=== PATIENT | male | born 1985 | race Caucasian/White ===

== ENCOUNTER 2017-12-09 10:47 | Emergency (ER) | payer SELFPAY ==
[2017-12-09 11:03] VITALS: BP 131/97
--- NOTE | 2017-12-09 11:59 | RAD ---
INDICATION: Right hand injury. TECHNIQUE: 4 views of the right hand were obtained. FINDINGS: The bones are in normal alignment. No fracture is seen. Joint spaces appear maintained. IMPRESSION: NO EVIDENCE FOR FRACTURE. IF THE PATIENT'S SYMPTOMS PERSIST RECOMMEND FOLLOW-UP IMAGING.
[2017-12-09] MEDS ORDERED: Tetan/Diph/Pertus SYR(Tdap)* 0.5 ML SYR(BOOSTRIX) use SYR IM ONE (12:28)
--- NOTE | 2017-12-09 12:42 | UC ---
Hand/Wrist HPI - HPI Summary HPI Summary: Patient presents to the with complaint of abrasion to the middle and fourth MCP joints after he cut it on a piece of metal at approximately 10 AM this morning. T Updated 11 years ago. He also has a history of fractured right middle MCP joint. Full range of motion of the MCP joints and wrist. Denies any pain. He is concerned over infection. He denies any other pain or injuries at this time. He has not tried anything [id number] for relief. - History Of Current Complaint Chief Complaint: UCLaceration Stated Complaint: HAND INJURY Time Seen by Provider: 12/09/17 10:50 Hx Obtained From: Patient ?: No Mechanism Of Injury: metal Onset/Duration: Sudden Onset Severity Initially: Mild Severity Currently: Mild Pain Intensity: 6 Pain Scale Used: 0-10 Numeric Character Of Pain: Aching Aggravating Factor(s): Movement, Lifting, Flexion, Extension Alleviating Factor(s): Nothing Related History: Dominant Hand Right - Risk Factors Compartment Syndrome Risk Factors: Pain - Allergies/Home Medications Allergies/Adverse Reactions: Allergies Allergy/AdvReac Type Severity Reaction Status Date / Time No Known Allergies Allergy Verified 12/09/17 10:58 Home Medications: Home Medications NK [No Home Medications Reported] 12/09/17 [History Confirmed 12/09/17] PMH/Surg Hx/FS Hx/Imm Hx Previously Healthy: Yes - Surgical History Surgical History: None - Social History Occupation: Employed Full-time Lives: With Family Alcohol Use: None Substance Use Type: None Smoking Status (MU): Never Smoked Tobacco Review of Systems Constitutional: Negative Skin: Other - Laceration and abrasion to the right middle and fourth MCP ENT: Negative Respiratory: Negative Cardiovascular: Negative Motor: Negative Neurovascular: Negative Musculoskeletal: Negative Neurological: Negative Is Patient Immunocompromised?: No All Other Systems Reviewed And Are Negative: Yes Physical Exam Triage Information Reviewed: Yes Appearance: Well-Appearing, Well-Nourished Vital Signs: Initial Vital Signs Temp 99.0 F 12/09/17 10:58 Pulse 85 12/09/17 10:58 Resp 16 12/09/17 10:58 BP 131/97 12/09/17 10:58 Pulse Ox 99 12/09/17 10:58 Vital Signs Reviewed: Yes Eye Exam: Normal Eyes: Positive: Conjunctiva Clear Neck exam: Normal Neck: Positive: Supple, No Lymphadenopathy Respiratory Exam: Normal Respiratory: Positive: Chest non-tender, Lungs clear Cardiovascular Exam: Normal Cardiovascular: Positive: RRR Musculoskeletal Exam: Normal Musculoskeletal: Positive: Strength Intact Psychological Exam: Normal Psychological: Positive: Normal Response To Family Skin Exam: Normal Hand/Wrist Course/Dx - Course Course Of Treatment: During the course of evaluation, the patient is evaluated for middle and fourth MCP joint injury and abrasions. Hand x-ray obtained which shows no acute findings. Full range of motion without pain. No pain over the scaphoid bone on palpation. Lacerations to the middle and fourth MCP which are approximately 0.7 cm in length over the middle dorsum of the MCP and 0.5 cm in length over the fourth finger over the MCP. Superficial. No need for sutures. Area was cleaned well with chlorhexidine. Adhesive glue applied to both abrasion and laceration and Steri-Strips applied. Gauze wrapped. Tdap updated at this time. - Differential Dx/Diagnosis Differential Diagnosis/HQI/PQRI: Abrasion Provider Diagnoses: Abrasion to the R hand Discharge - Sign-Out/Discharge Documenting (check all that apply): Discharge - Discharge Plan Condition: Stable Disposition: HOME Patient Education Materials: Skin Adhesive Care (ED), Steristrips (ED) Referrals: Joe Mcdermott MD [Primary Care Provider] - Additional Instructions: Keep the steri strip applied x 2 days Keep other bandage and dayna wrap on x 24 hours. - Billing Disposition and Condition Condition: STABLE Disposition: HOME
== END 2017-12-09 12:47 | disposition home or self-care (01) ==
LOC: UCEAST 10:47
DX: S60.511A Abrasion of right hand, initial encounter (principal); W26.8XXA Contact with other sharp object(s), not elsewhere classified, initial encounter; Y92.9 Unspecified place or not applicable; Z23 Encounter for immunization
CPT/HCPCS: 90471; 90715; 99211; G0463

== ENCOUNTER 2018-01-13 09:08 | Emergency (ER) | payer SELFPAY ==
[2018-01-13] MEDS ORDERED: Aspirin TAB* 325 MG PO ONE (09:18)
[2018-01-13 09:30] VITALS: BP 161/81
[2018-01-13] MEDS ORDERED: Nitroglycerin TAB 0.4 MG* 0.4 MG TAB SL ONE (09:30)
--- NOTE | 2018-01-13 09:48 | ED ---
HPI Chest Pain - HPI Summary HPI Summary: 32 yo WM h/o HTN c/o right sided CP - stabbing and pressure like x 2 hrs, pain 8 /10 associated with some nausea and diaphoresis, NO cardiac workup in the past , on NO meds and has had left sided CP, in the past and had no follow up with any physician - History of Current Complaint Chief Complaint: UCChestPain Hx Obtained From: Patient Timing: Constant Initial Severity: Severe Current Severity: Severe Pain Intensity: 8 Chest Pain Location: Upper Sternal, Right Anterior Chest Pain Radiates To:: Shoulder Aggravating Factor(s): Nothing Alleviating Factor(s): Nothing Associated Signs and Symptoms: Positive: Chest Pain, Diaphoresis - Allergy/Home Medications Allergies/Adverse Reactions: Allergies Allergy/AdvReac Type Severity Reaction Status Date / Time No Known Allergies Allergy Verified 01/13/18 09:09 PMH/Surg Hx/FS Hx/Imm Hx Previously Healthy: Yes Cardiovascular History: Reports: Hx Hypertension Infectious Disease History: No Infectious Disease History: Denies: Traveled Outside the [place] in Last 30 Days - Social History Alcohol Use: None Substance Use Type: Reports: None Smoking Status (MU): Never Smoked Tobacco Review of Systems Constitutional: Negative ENT: Negative Positive: Chest Pain Respiratory: Negative Gastrointestinal: Negative Genitourinary: Negative Skin: Negative Neurological: Negative Psychological: Normal All Other Systems Reviewed And Are Negative: Yes Physical Exam Triage Information Reviewed: Yes Vital Signs On Initial Exam: Initial Vitals Temp Pulse Resp BP Pulse Ox 36.9 C 73 18 136/82 99 01/13/18 09:09 01/13/18 09:09 01/13/18 09:09 01/13/18 09:09 01/13/18 09:09 Vital Signs Reviewed: Yes Appearance: Positive: Well-Appearing Skin: Positive: Warm Eyes: Positive: Normal ENT: Positive: Normal ENT inspection Respiratory/Lung Sounds: Positive: Clear to Auscultation Cardiovascular: Positive: Normal, Other - SEVERE anterior right upper chest tenderness "underneath" right upper pectoralis major, radiating to shoulder, S1 , S2 Abdomen Description: Positive: Nontender Musculoskeletal: Positive: Normal Neurological: Positive: Normal Psychiatric: Positive: Normal AVPU Assessment: Alert Diagnostics - Vital Signs Vital Signs Temp Pulse Resp BP Pulse Ox 01/13/18 09:30 85 18 161/81 99 04/26/18 09:09 36.9 C 73 18 136/82 99 - Laboratory Lab Statement: Any lab studies that have been ordered have been reviewed, and results considered in the medical decision making process. Chest Pain Course/Dx - Course Course Of Treatment: PT IS C/O RIGHT SHOULDER AND RIGHT UPPER CP THAT HAS BEEN 8 /10 SINCE 7:10 THIS AM EKG FROM 2 YEARS AGO SHOWED LBBB, NOW WITH MORE PRONOUNCED ST ELEVATION >2mm IN LEADS V5 AND V6, likely LAD ACS vs possible aortic dissection (Left arm 136/82, 73, R arm 161/81, 85) ER called and discussed case with Dr Engel and Niesha James PA in ED - Chest Pain Differential Diagnosis/HQI/PQRI: Acute CO, ACS, Angina, Aortic Aneurysm, Other: - aortic dissection, - Diagnoses Provider Diagnoses: Chest pain due to CAD - Provider Notifications Instructed by Provider To: MD Will See In ED - Informed Dr Khanna in ED Discharge - Sign-Out/Discharge Documenting (check all that apply): Discharge/Admit/Transfer - Discharge Plan Condition: Guarded Disposition: AGAINST MEDICAL ADVICE Discharge Disposition Comment: PT WAS OFFERED AMBULANCE FOR A TRANSFER BUT PT REFUSED SEVERAL TIMES Referrals: Joe Mcdermott MD [Primary Care Provider] - Additional Instructions: GO TO ER [facility] , YOU ARE LEAVING AGAINST MEDICAL ADVICE TO BE TRANSFERRED BY AMBULANCE. - Billing Disposition and Condition Condition: GUARDED Disposition: [facility]
== END 2018-01-13 09:38 | disposition left against medical advice (07) ==
LOC: UCEAST 09:08
DX: R07.89 Other chest pain (principal); R11.0 Nausea; R61 Generalized hyperhidrosis; I25.10 Atherosclerotic heart disease of native coronary artery without angina pectoris; I10 Essential (primary) hypertension
CPT/HCPCS: 93005; 99213; A9270-GY; G0463

== ENCOUNTER 2018-01-13 09:52 | Observation (INO) | payer SELFPAY ==
[2018-01-13] MEDS ORDERED: Morphine VIAL* 4 MG/ML VIAL (1 ml vial) IV ONE ×3 (10:02→11:54)
[2018-01-13] MEDS ORDERED: Ondansetron INJ* 2 MG/ML VIAL IV ONE (10:02)
[2018-01-13] MEDS ORDERED: Nitroglycerin TAB 0.4 MG* 0.4 MG TAB SL ONE (10:06)
[2018-01-13] MEDS ORDERED: NS 0.9% 1000 ML* 2,000 ML IV ONE (10:06)
[2018-01-13 10:22] LABS: ABS Basophils 0.1 10^3/ul (0-0.2); ABS Eosinophils 0.3 10^3/ul (0-0.6); ABS Lymphocytes 2.7 10^3/ul (1.0-4.8); ABS Monocytes 0.7 10^3/ul (0-0.8); ABS Neutrophils 5.2 10^3/ul (1.5-7.7); ABS Nucleated RBC 0 10^3/ul; Eosinophil % 3.5 % (0-6); Hematocrit 46 % (42-52); Hemoglobin 15.8 g/dl (14.0-18.0); Lymphocyte % 29.9 % (25-47); Mean Corpuscular HGB Conc 35 g/dl (31-36); Mean Corpuscular Hemoglobin 31 pg (27-31); Mean Corpuscular Volume 89 fL (80-94); Mean Platelet Volume 9.1 um3 (7.4-10.4); Nucleated Red Blood Cells % 0; Platelet Count 285 10^3/ul (150-450); Red Blood Count 5.13 10^6/ul (4.0-5.4); Red Cell Distribution Width 13 % (10.5-15); White Blood Count 9.1 10^3/ul (3.5-10.8)
--- NOTE | 2018-01-13 10:58 | RAD ---
INDICATION: Left bundle branch block. COMPARISON: Correlation is made with a prior chest x-ray study from December 11, 2014. TECHNIQUE: A portable view of the chest was obtained. FINDINGS: Cardiac and mediastinal contours appear to be within normal limits. The lungs are clear. No pleural effusion is seen. IMPRESSION: NO EVIDENCE FOR ACUTE DISEASE.
[2018-01-13 10:59] LABS: EGFR Non-African American 99.7 (>60)
[2018-01-13] MEDS ORDERED: Iohexol 350* (CONTRAST) 500 ML MDV IV ONE (11:20)
--- NOTE | 2018-01-13 12:07 | RAD ---
INDICATION: Right-sided chest pain. COMPARISON: Comparison is made with a prior chest x-ray study from January 13, 2018. TECHNIQUE: A CT angiogram of the chest was performed with intravenous following intravenous injection of 84 ml of Omnipaque 350 nonionic contrast. Contiguous axial sections were obtained from the lung apices through the lung bases. Images were reconstructed in the coronal and sagittal planes. FINDINGS: There is relatively homogeneous opacification of the pulmonary arteries. No intraluminal filling defect or pulmonary embolism is seen. The heart is within normal limits in size. No pericardial effusion is present. The thoracic aorta is normal in caliber and incompletely pacified. There is no gross evidence for dissection. No significant enlarged mediastinal or hilar lymph nodes are seen. There is mild increased density in the anterior mediastinum most consistent with residual thymus tissue. There is minimal dependent atelectasis in the left lower lobe. The lungs are otherwise clear. No pleural effusion or pneumothorax is seen. No acute finding is seen on the images of the upper abdomen. No significant focal osseous abnormality is seen. IMPRESSION: NO EVIDENCE FOR PULMONARY EMBOLISM.
[2018-01-13] MEDS ORDERED: Lidocaine 2% VISCOUS* 15 ML UDC PO ONE (12:41)
[2018-01-13] MEDS ORDERED: Pantoprazole IV* 40 MG IV ONE (12:41)
[2018-01-13] MEDS ORDERED: Al Hydrox/Mg Hydrox/Simet LIQ* 30 ML UDC PO ONE (12:41)
--- NOTE | 2018-01-13 13:41 | RAD ---
Indication: RIGHT chest pain. Comparison: January 13, [address] Technique: RIGHT upper quadrant ultrasound. Report: Appropriate direction flow documented in the portal and hepatic veins. 17.9 cm liver is increased in echogenicity. Focal geographic nonmass-like relative hypoechogenicity anterior to the main portal vein is consistent with focal fatty sparing. Negative for intrahepatic biliary dilatation. 5.4 mm common bile duct. Adequately distended gallbladder with 2.9 mm wall is without pathologic finding. Negative for sonographic Chicas's sign. The pancreatic head and tail are significantly obscured due to bowel gas with the visualized pancreas unremarkable. Negative for ascites. 13.1 x 4.9 x 5.4 cm RIGHT kidney is unremarkable. IMPRESSION: 1. Negative for gallbladder pathology. 2. Hepatosteatosis. Focal fatty sparing anterior to the main portal vein.
[2018-01-13] MEDS ORDERED: Morphine VIAL* 4 MG/ML VIAL (1 ml vial) IV PRN (13:58)
[2018-01-13] MEDS ORDERED: Acetaminophen TAB* 325 MG PO PRN (13:58)
[2018-01-13] MEDS ORDERED: Ketorolac INJ* 30 MG/ML 1 ML VIAL IV PUSH ONE (13:58)
[2018-01-13] MEDS ORDERED: Ondansetron INJ* 2 MG/ML VIAL IV PRN (13:58)
--- NOTE | 2018-01-13 14:30 | ED ---
Rex Clark Jennifer, scribed for Te Khanna MD on 01/13/18 at 1010 . HPI Chest Pain - HPI Summary HPI Summary: The patient is a 32 year old male who comes from with sudden onset chest pain and dizziness since 07:00 this morning. The pain is severe and right- sided. Deep breaths aggravate the pain. The patient complains of tingling down the right arm and pain in the right neck, back, and shoulder. He additionally complains of shortness of breath and diaphoresis. - History of Current Complaint Chief Complaint: EDChestPainROMI Time Seen by Provider: 01/13/18 10:02 Hx Obtained From: Patient Onset/Duration: Started Hours Ago - 3 hours, Still Present Timing: Constant Initial Severity: Severe Current Severity: Severe Pain Intensity: 4 Pain Scale Used: 0-10 Numeric Chest Pain Location: Discrete at: - Right sided Chest Pain Radiates: No Aggravating Factor(s): Deep Breaths Alleviating Factor(s): Nothing Associated Signs and Symptoms: Positive: Dizziness, Other: - tingling down right arm; pain in right neck, back, shoulder; shortness of breath;diaphoresis - Allergy/Home Medications Allergies/Adverse Reactions: Allergies Allergy/AdvReac Type Severity Reaction Status Date / Time No Known Allergies Allergy Verified 01/13/18 09:09 Home Medications: Home Medications Multivitamins/Minerals TAB* [Theragran/minerals TAB*] 1 tab PO DAILY 01/13/18 [ History Confirmed 01/13/18] PMH/Surg Hx/FS Hx/Imm Hx Cardiovascular History: Reports: Hx Hypertension, Other Cardiovascular Problems/ Disorders - LBBB Sensory History: Denies: Hx Legally Blind, Hx Deafness Infectious Disease History: No Infectious Disease History: Denies: Traveled Outside the [place] in Last 30 Days - Family History Known Family History: Positive: Cardiac Disease - Father of MS - Social History Alcohol Use: None Substance Use Type: Reports: None Smoking Status (MU): Never Smoked Tobacco Review of Systems Positive: Skin Diaphoresis Positive: Chest Pain Positive: Shortness Of Breath Positive: Myalgia - right neck, back, shoulder Neurological: Other - Dizziness, tingling down right arm All Other Systems Reviewed And Are Negative: Yes Physical Exam - Summary Physical Exam Summary: General: well-appearing, moderate pain distress Skin: warm, color reflects adequate perfusion, dry Head: normal Eyes: EOMI, BERTHA ENT: normal Neck: supple, nontender Respiratory: CTA, breath sounds present Cardiovascular: RRR Abdomen: soft, nontender Bowel: present Musculoskeletal: normal, strength/ROM intact Neurological: normal, sensory/motor intact, A&O x3 Psychological: affect/mood appropriate Triage Information Reviewed: Yes Vital Signs On Initial Exam: Initial Vitals Temp Pulse Resp BP Pulse Ox 98.2 F 66 16 164/117 98 01/13/18 10:00 01/13/18 10:00 01/13/18 10:00 01/13/18 10:00 01/13/18 10:00 Vital Signs Reviewed: Yes Diagnostics - Vital Signs Vital Signs Temp Pulse Resp BP Pulse Ox 01/13/18 10:05 100 01/13/18 10:00 98.2 F 66 16 164/117 98 - Laboratory Lab Results: Lab Results 01/13/18 01/13/18 01/13/18 Range/Units 10:03 10:03 10:03 WBC 9.1 (3.5-10.8) 10^3/ul RBC 5.13 (4.0-5.4) 10^6/ul Hgb 15.8 (14.0-18.0) g/dl Hct 46 (42-52) % MCV 89 (80-94) fL MCH 31 (27-31) pg MCHC 35 (31-36) g/dl RDW 13 (10.5-15) % Plt Count 285 (150-450) 10^3/ul MPV 9.1 (7.4-10.4) um3 Neut % (Auto) 57.7 (38-83) % Lymph % (Auto) 29.9 (25-47) % [place] % (Auto) 8.0 H (0-7) % Eos % (Auto) 3.5 (0-6) % Baso % (Auto) 0.9 (0-2) % Absolute Neuts (auto) 5.2 (1.5-7.7) 10^3/ul Absolute Lymphs (auto) 2.7 (1.0-4.8) 10^3/ul Absolute Monos (auto) 0.7 (0-0.8) 10^3/ul Absolute Eos (auto) 0.3 (0-0.6) 10^3/ul Absolute Basos (auto) 0.1 (0-0.2) 10^3/ul Absolute Nucleated RBC 0 10^3/ul Nucleated RBC % 0 ESR Pending APTT 31.0 (26.0-36.3) seconds D-Dimer, Quantitative < 200 (Less Than 230) ng/mL Sodium 139 (139-145) mmol/L Potassium 4.0 (3.5-5.0) mmol/L Chloride 107 (101-111) mmol/L Carbon Dioxide 20 L (22-32) mmol/L Anion Gap 12 H (2-11) mmol/L BUN 14 (6-24) mg/dL Creatinine 0.88 (0.67-1.17) mg/dL Est GFR ( Amer) 128.3 (>60) Est GFR (Non-Af Amer) 99.7 (>60) BUN/Creatinine Ratio 15.9 (8-20) Glucose 101 H (70-100) mg/dL Lactic Acid (0.5-2.0) mmol/L Calcium 9.8 (8.6-10.3) mg/dL Total Bilirubin 0.50 (0.2-1.0) mg/dL AST 18 (13-39) U/L ALT 19 (7-52) U/L Alkaline Phosphatase 48 (34-104) U/L Troponin I 0.01 (<0.04) ng/mL C-Reactive Protein < 1.00 (< 5.00) mg/L Total Protein 7.2 (6.4-8.9) g/dL Albumin 4.3 (3.2-5.2) g/dL Globulin 2.9 (2-4) g/dL Albumin/Globulin Ratio 1.5 (1-3) Lipase 14 (11.0-82.0) U/L TSH 1.89 (0.34-5.60) mcIU/mL 01/13/18 01/13/18 Range/Units 10:03 13:06 WBC (3.5-10.8) 10^3/ul RBC (4.0-5.4) 10^6/ul Hgb (14.0-18.0) g/dl Hct (42-52) % MCV (80-94) fL MCH (27-31) pg MCHC (31-36) g/dl RDW (10.5-15) % Plt Count (150-450) 10^3/ul MPV (7.4-10.4) um3 Neut % (Auto) (38-83) % Lymph % (Auto) (25-47) % [place] % (Auto) (0-7) % Eos % (Auto) (0-6) % Baso % (Auto) (0-2) % Absolute Neuts (auto) (1.5-7.7) 10^3/ul Absolute Lymphs (auto) (1.0-4.8) 10^3/ul Absolute Monos (auto) (0-0.8) 10^3/ul Absolute Eos (auto) (0-0.6) 10^3/ul Absolute Basos (auto) (0-0.2) 10^3/ul Absolute Nucleated RBC 10^3/ul Nucleated RBC % ESR APTT (26.0-36.3) seconds D-Dimer, Quantitative (Less Than 230) ng/mL Sodium (139-145) mmol/L Potassium (3.5-5.0) mmol/L Chloride (101-111) mmol/L Carbon Dioxide (22-32) mmol/L Anion Gap (2-11) mmol/L BUN (6-24) mg/dL Creatinine (0.67-1.17) mg/dL Est GFR ( Amer) (>60) Est GFR (Non-Af Amer) (>60) BUN/Creatinine Ratio (8-20) Glucose (70-100) mg/dL Lactic Acid 1.9 (0.5-2.0) mmol/L Calcium (8.6-10.3) mg/dL Total Bilirubin (0.2-1.0) mg/dL AST (13-39) U/L ALT (7-52) U/L Alkaline Phosphatase (34-104) U/L Troponin I 0.01 (<0.04) ng/mL C-Reactive Protein (< 5.00) mg/L Total Protein (6.4-8.9) g/dL Albumin (3.2-5.2) g/dL Globulin (2-4) g/dL Albumin/Globulin Ratio (1-3) Lipase (11.0-82.0) U/L TSH (0.34-5.60) mcIU/mL Result Diagrams: 01/13/18 10:03 01/13/18 10:03 Lab Statement: Any lab studies that have been ordered have been reviewed, and results considered in the medical decision making process. - Radiology CXR Xray Interpretation: No Acute Changes - NO EVIDENCE FOR ACUTE DISEASE. Dr. Khanna has reviewed this report. Radiology Interpretation Completed By: Radiologist - CT Chest/Thorax CTA CT Interpretation: No Acute Changes - NO EVIDENCE FOR PULMONARY EMBOLISM. Dr. Khanna has reviewed this report. CT Interpretation Completed By: Radiologist - EKG 09:57 Cardiac Rate: NL EKG Rhythm: Sinus Rhythm - 76 BPM EKG Interpretation: LBBB, no concordance or excessive discordance EKG Comparison: No Significant Change - LBBB presents in EKG of 04/12/15 - Additional Comments Diagnostic Additional Comments: Gallbladder US. Interpreted by a radiologist. IMPRESSION: 1. Negative for gallbladder pathology. 2. Hepatosteatosis. Focal fatty sparing anterior to the main portal vein. Dr. Khanna has reviewed this report. Chest Pain Course/Dx - Course Course Of Treatment: Medications reviewed. BP noted and advised to follow up with PCP. ADMIT HOSPITALIST - Diagnoses Provider Diagnoses: HTN (hypertension), Chest pain - Provider Notifications Discussed Care Of Patient With: Arlen Alex Time Discussed With Above Provider: 10:12 Instructed by Provider To: Other - Dr. Alex, cardiology, doesn't see any differences in LBBB from previous EKGs. Discharge - Sign-Out/Discharge Documenting (check all that apply): Discharge/Admit/Transfer - Discharge Plan Condition: Stable Disposition: ADMITTED TO [facility] Referrals: Joe Mcdermott MD [Primary Care Provider] - Additional Instructions: Your blood pressure was elevated during todays visit; please follow up with your primary care provider within a week for further evaluation. Follow up with your primary care physician in three days. Return to the emergency department for any new or worsening symptoms. - Billing Disposition and Condition Condition: STABLE [place] [facility] [place] The documentation as recorded by the Rex cruz Jennifer accurately reflects the service I personally performed and the decisions made by , Te Khanna MD.
--- NOTE | 2018-01-13 15:12 | RAD ---
INDICATION: Right shoulder pain. TECHNIQUE: 4 views of the right shoulder were obtained. FINDINGS: No fracture or significant focal osseous abnormality is seen. Joint spaces appear maintained. IMPRESSION: NO EVIDENCE OF FRACTURE.
[2018-01-13] MEDS ORDERED: diPHENhydraMINE PO* 50 MG PO PRN (15:54)
[2018-01-13] MEDS: traMADol TAB* 50 MG PO PRN (16:19)
[2018-01-13] MEDS: Morphine VIAL* 4 MG/ML VIAL (1 ml vial) IV PRN ×2 (16:19→20:54)
--- NOTE | 2018-01-13 17:05 | HP ---
CC: Dr. Mcdermott* HISTORY AND PHYSICAL: DATE OF ADMISSION: 01/13/18. PRIMARY CARE PROVIDER: Dr. Mcdermott. ATTENDING PHYSICIAN WHILE IN THE HOSPITAL: Aston Oconnor MD*(report dictated by Henna Siddiqui NP). CHIEF COMPLAINT: Right sided chest pain. HISTORY OF PRESENT ILLNESS: Mr. Uribe is a 32-year-old male patient. He says he only carries a history of heart murmur and he has a known history of left bundle branch block. He comes into our ER today stating that he got up today around 7 this morning. About 15 minutes after that he started developing a sharp, stabbing constant right sided chest pain that got worse with position change and says he yesterday was moving doors. He says that he did not have any trauma to that area to his knowledge. He says he did not feel like he pulled anything. He says the pain starts in the chest, it does go to his neck at times, but it just coming and going and it is severe. He says he has not had any recent illnesses, no recent cough, fevers, chills. No abdominal pain or nausea, vomiting. He says the pain does him short of breath because it hurts it to take a deep breath. He says the discomfort just was not getting any better. He was concerned. He was evaluated in the ED. There was concern because of his history of left bundle branch block with the chest discomfort. We were asked to evaluate for admission. PAST MEDICAL HISTORY: 1. He has a history of heart murmur. 2. Left bundle branch block. PAST SURGICAL HISTORY: Denied. HOME MEDICATIONS: Include multivitamin 1 tablet daily. ALLERGIES TO MEDICATIONS: Include no known drug allergies. FAMILY HISTORY: His mother has a history of hypertension, COPD. Father it sounds like had a history of heart valve infection, endocarditis secondary to a dental disease. He had a pacemaker at 28. SOCIAL HISTORY: He does not smoke. He says he does not drink. He says the surrogate decision maker is his mother and his fiance. REVIEW OF SYSTEMS: There is no documented fever. He denies having any significant weight change. There is no double vision. He denies having any ear discharge. There is no rhinorrhea. Denies having any sore throat. There is no thyroid enlargement. He does admit to chest pain. He does admit to shortness of breath due to the pain. He denies having any abdominal pain. No nausea, no vomiting. No dysuria, no frequency. No seizure. No loss of consciousness. No pruritus. No skin ulcerations. Review of 14 systems completed, all others negative. PHYSICAL EXAMINATION GENERAL: At this time, Mr. Uribe is a 32-year-old male patient. He is sitting in the ED stretcher. He appears to be well nourished, well developed. He does not appear to be in any acute distress. VITAL SIGNS: Blood pressure 133/73, pulse 59, respirations were 15, O2 sat 96% , temperature 98.2. HEENT: Head is atraumatic, normocephalic. Eyes: EOMs are intact. Sclerae was anicteric, not pale. NECK: Supple. Throat: Oral mucosa appears to be moist. No oropharyngeal erythema. LUNGS: Clear to auscultation. No wheezes, rales or rhonchi. HEART: Sounds S1 and S2. Regular rate and rhythm. No murmurs, rubs or gallops. ABDOMEN: Soft, flat. Nontender. Bowel sounds present. EXTREMITIES: Pulses were 2+ throughout. He has full range of motion to his right shoulder. He, on the the chest wall, had reproducible pain. He was tender on palpitations. There was no pain with rotation of the shoulder. He had 5/5 strength. NEUROLOGIC: He is awake, he is alert, he is oriented x3, no gross focal deficits. SKIN: Intact. There was no rashes noted to the left shoulder, left arm area. LABORATORY DATA: Today, WBC 9.1, RBC of 5.13, hemoglobin 15.8, hematocrit 48, platelet count of 285. D-dimer was less than 200. PTT was 31. Sodium 139, potassium 4, chloride 107, bicarb 20, BUN 14, creatinine 0.88, glucose 101, lactate 1.9, calcium 9.8, total bilirubin 0.5, AST 18, ALT 19, alk phos 48. Serial troponins were both 0.01. TSH was normal. CRP, ESR is pending. He did have a gallbladder ultrasound obtained today, which showed negative for gallbladder pathology, hepatic steatosis, focal fatty sparing anterior to the main portal vein. He did have a chest, thorax CTA, which impression, no evidence of PE, thoracic aorta is in normal caliber. No evidence of dissection. He had a chest x-ray obtained today, which showed no evidence for acute disease. EKG shows today a normal sinus rhythm, rate of 76, with a left bundle branch block. When you look that from an EKG from 3 years ago, it appears to be similar. Old medical records were reviewed. ASSESSMENT AND PLAN: Mr. Uribe is a 32-year-old male patient coming into the ED today with complaints of chest pain. It does sound atypical. We were asked to evaluate for admission. He will be admitted under observatory status for: 1. Chest pain. The chest pain does not seem to be cardiac related. It has been constant. He has had 2 negative troponins despite the constant pain. It is reproducible, it is on the right side. I am going to get an x-ray of that shoulder just to make sure there is no fracture. I am checking an ESR and CRP, this could be costochondritis, it could be pleurisy though it is less likely given no recent illnesses, however, it is not out of the question. I am going to give him an NSAID to see if this helps with his pain and we will also get an echo and get one more troponin. Place him on telemetry. 2. Heart murmur and left bundle branch block. I do not appreciate any murmur on exam. I am going to get an echo. 3. DVT prophylaxis. He will be placed on SCDs. 4. Code status is full code. 5. Fluid, electrolytes and nutrition. He got a regular diet. TIME SPENT: Time spent on the admission was 60 minutes, greater than half the time was spent face to face with the patient obtaining my history and physical, the other half of the time was spent on going over the plan of care with the patient and implementing the place of care. I did discuss the plan of care with my attending Dr. Oconnor, he is in agreement. HENNA SIDDIQUI NP [id number]/[facility] #: [id number] RADHA
[2018-01-14 06:09] LABS: ABS Basophils 0.1 10^3/ul (0-0.2); ABS Eosinophils 0.4 10^3/ul (0-0.6); ABS Lymphocytes 2.7 10^3/ul (1.0-4.8); ABS Monocytes 0.7 10^3/ul (0-0.8); ABS Neutrophils 4.6 10^3/ul (1.5-7.7); ABS Nucleated RBC 0 10^3/ul; Eosinophil % 4.3 % (0-6); Hematocrit 40 % (42-52); Hemoglobin 13.9 g/dl (14.0-18.0); Lymphocyte % 32.1 % (25-47); Mean Corpuscular HGB Conc 34 g/dl (31-36); Mean Corpuscular Hemoglobin 31 pg (27-31); Mean Corpuscular Volume 90 fL (80-94); Mean Platelet Volume 9.1 um3 (7.4-10.4); Nucleated Red Blood Cells % 0; Platelet Count 233 10^3/ul (150-450); Red Blood Count 4.48 10^6/ul (4.0-5.4); Red Cell Distribution Width 14 % (10.5-15); White Blood Count 8.5 10^3/ul (3.5-10.8)
[2018-01-14 06:15] LABS: INR 0.92 (0.77-1.02)
[2018-01-14 06:28] LABS: EGFR Non-African American 94.7 (>60)
[2018-01-14] MEDS: traMADol TAB* 50 MG PO PRN (08:43)
[2018-01-14] MEDS ORDERED: Multivitamins/Minerals TAB PO SCH (09:00)
--- NOTE | 2018-01-14 09:55 | ECHO ---
Patient: MARGOT NGUYEN [facility] Rec#: [id number] : 1985 Date: 01/14/2018 Age: 32y Height: 193.04 cm / 76.0 in Weight: 117.93 kg / 259.9 lbs Sex: M BSA: 2.48 Room#: [facility] Admit Date#: 01/13/2018 Type: Inpatient Referring: Phoenix Siddiqui NP Reading: Arlen Alex MD Code Enforcement Supervisor: [facility] Transthoracic Echocardiogram Indication: Chest Pain BP: 141/68 HR: 97 Rhythm: NSR Findings History: HTN and LBBB. Technical Comments: The study quality is fair. Completed at 0820. Left Ventricle: The left ventricular size is mild to moderately dilated. Mild concentric left ventricular hypertrophy is observed. There is global hypokinesis of the left ventricle with minor regional variation. There is moderate to severely decreased left ventricular systolic function. The estimated ejection fraction is 20-25%. globally. There is septal flattening of the interventricular septum consistent with right ventricular volume or pressure overload. There is no consistent Doppler evidence of clinically significant diastolic dysfunction. Left Atrium: The left atrium is severely dilated. Right Ventricle: Moderator Band present. The right ventricle is mildly dilated. The right ventricular global systolic function is moderately reduced. Right Atrium: The right atrium is mildly dilated. Aortic Valve: The aortic valve is trileaflet. There is no evidence of aortic valve thickening. There is a trace of aortic regurgitation. There is no evidence of aortic stenosis. Mitral Valve: There is mitral annular calcification. The mitral valve leaflets are mildly thickened. There is mild mitral regurgitation. There is no evidence of mitral stenosis. Tricuspid Valve: The tricuspid valve leaflets are normal. There is a physiologic tricuspid regurgitation. The right ventricular systolic pressure is estimated at 15 mmHg. There is evidence that pulmonary hypertension may be underestimated. There is no tricuspid stenosis. Pulmonic Valve: The pulmonic valve appears normal. There is a trace pulmonic regurgitation. There is no pulmonic stenosis. Pericardium: There is no significant pericardial effusion. Aorta: There is no dilatation of the ascending aorta. There is no dilatation of the aortic arch. The aortic root is normal in size. Pulmonary Artery: The main pulmonary artery appears normal. Venous: The inferior vena cava appears normal in size. There is a greater than 50% respiratory change in the inferior vena cava dimension. Summary: There was not any prior study for comparison. Conclusions The left ventricular size is mild to moderately dilated. Mild concentric left ventricular hypertrophy is observed. There is moderate to severely decreased left ventricular systolic function. The estimated ejection fraction is 20-25%. globally. There is septal flattening of the interventricular septum consistent with right ventricular volume or pressure overload. Paradoxical septal wall motion consistent with conduction abnormality secondary to LBBB. The left atrium is severely dilated. The right ventricular global systolic function is moderately reduced. There is a trace of aortic regurgitation. There is mild mitral regurgitation. Measurements Name Value Normal Range RVIDd (AP) 2D 3.3 cm (0.9 - 2.6) RVDdMajor (2D) 4.5 cm (2.2 - 4.4) RAd ISD 4CH 5.2 cm (3.4 - 4.9) RA (A4C)W 5.3 cm (2.9 - 4.6) IVSd (2D) 1.2 cm (0.6 - 1) LVPWd (2D) 1.3 cm (0.6 - 1) LVIDd (2D) 6.1 cm (3.6 - 5.4) LVIDs (2D) 5.1 cm - LV FS (2D) 16 % (25 - 45) Aortic Annulus 2.3 cm (1.4 - 2.6) Ao root diameter (2D) 3.4 cm (2.1 - 3.5) Ascending Ao 3 cm (2.1 - 3.4) Aortic arch 2.7 cm (1.8 - 3.4) LA dimension (AP) 2D 4.5 cm (2.3 - 3.8) LAd ISD 4CH 6.3 cm (2.9 - 5.3) LA ISD 4CH W 5.6 cm (2.5 - 4.5) Name Value Normal Range LA ESV SP 4CH (A/L) 120 ml - LA ESV SP 2CH (A/L) 134 ml - LA ESV BP (A/L) 127 ml - LA ESV BP (A/L) index 51 ml/m2 - LA ESV SP 4CH (MOD) 112 ml - LA ESV SP 2CH (MOD) 124 ml - Name Value Normal Range MV E-wave Vmax 0.96 m/sec - MV deceleration time 170.5 msec - MV A-wave Vmax 0.55 m/sec - MV E:A ratio 1.75 ratio - LV septal e' Vmax 0.07 m/sec - LV lateral e' Vmax 0.04 m/sec - LV E:e' septal ratio 13.71 ratio - LV E:e' lateral ratio 24 ratio - Name Value Normal Range AV Vmax 1.48 m/sec - AV VTI 29.63 cm - AV peak gradient 8.8 mmHg - AV mean gradient 4.8 mmHg - LVOT Vmax 0.82 m/sec - LVOT VTI 16.3 cm - LVOT peak gradient 2.73 mmHg - LVOT mean gradient 1.46 mmHg - STEVEN Vmax 1.25 m/sec - Name Value Normal Range TR Vmax 1.7 m/sec - TR peak gradient 12 mmHg - RAP 3 mmHg - RVSP 15 mmHg - IVC diameter 1.9 cm - Name Value Normal Range PV Vmax 0.88 m/sec - PV peak gradient 3.11 mmHg -
[2018-01-14 13:35] VITALS: BP 154/76
--- NOTE | 2018-01-14 14:04 | TRS ---
TRANSFER SUMMARY: DATE OF ADMISSION: 01/13/18 DATE OF DISCHARGE/TRANSFER: 01/14/18 PRINCIPAL DISCHARGE DIAGNOSIS: Acute systolic heart failure. SECONDARY DISCHARGE DIAGNOSIS: Left bundle branch block. HOSPITAL COURSE BY PROBLEM: 1. Acute systolic heart failure. An echocardiogram was obtained after Mr. Uribe complained of atypi juwan chest pain and incidentally found an ejection fraction of 20% to 25% globally. He appeared well compensated. The etiology of this cardiomyopathy remains unclear. Mr. Uribe is not an alcohol abuse r; however, he does cite history of heavy drug abuse including cocaine in his early 20s. Otherwise, hannah swan has no strong family cardiac history and no other apparent risk factors, recent viral syndrome, or autoimmune phenomena. He was evaluated by Cardiology here and started on metoprolol and lisinopril a nd he is being transferred to a higher level of care for further workup of his cardiomyopathy. 2. Left bundle branch block. This was present on prior EKGs and is likely a reflection of his cardi omyopathy. 3. Chest pain. Troponins were negative x3 and his pain was associated with some heavy labor. 4. SVT. He had several episodes of supraventricular tachycardia on telemetry. He was initiated on low-dose beta alessandro during this admission. DISPOSITION: Mr. Uribe is being [place] [facility] [facility] for ev aluation at their advanced heart failure center. PHYSICAL EXAM AT THE TIME OF DISCHARGE: Temperature 98.2, heart rate 56, respiratory rate 16, pulse ox 99% on room air, blood pressure 154/89. General: Alert, well-appearing young man, in no distress. He is well nourished. HEENT: Pupils equal, round, and reactive to light. Moist mucosa. Neck: No JVD is visible. No cervical adenopathy. No thyromegaly. He is in regular rate and rhythm with no murmurs. His PMI is nondisplaced. Lungs are clear bilaterally. Abdomen is soft, nontender, nondiste nded. He has no lower extremity edema. [id number]/[facility] #: [id number]
--- NOTE | 2018-01-14 14:04 | CONS ---
CC: Hospitalist Service; Dr. Mcdermott; Arlen Alex MD CARDIOLOGY CONSULTATION REPORT: DATE OF CONSULT: 01/14/18 REASON FOR CONSULT: I was asked by the hospitalist service to see this 32-year-old male patient who was admitted to the hospital because of atypical symptoms of chest pain. HISTORY OF PRESENT ILLNESS: The patient has a known history of left bundle-branch block in 2014. He came to the emergency room with symptoms of chest pain and he was found to have left bundle-branch b lock and at that time was told that it was musculoskeletal. Cardiology consult was further requested because he had an echocardiogram done today that showed him to have severely reduced left ventricula r systolic function with an EF of 20% globally. There is dilated left ventricle, at least mild. The patient indicated that yesterday he had been having episode of symptoms of right-sided chest pain al l through the day. Morphine in the emergency room helped him a lot. He said it did go to his jaw an d his arm. He had no nausea, no vomiting, no hematochezia, no skin rash, no abdominal pain, no synco pe. No fever, no chills, no viral illness, no pneumonia. No traveling outside the [facility] rece ntly. He said he used to drink in the past, but now he is only drinking mildly. No history of smoki ng. He used to do some drugs and cocaine and snorting, but he has to do this only now. He is using marijuana occasionally actually. He gives no history of IV drug abuse. He gives no history of heavy alcoholism. He gives no history of hypertension, diabetes, hyperlipidemia, although that is unknown. No history of thyroid disease. He is here for further evaluation of his symptoms. He gives no nausea, no vomiting, no swelling of the lower extremities, no shortness of breath, no orthopnea, no hematochezia, no skin rash, no abdomi nal pain, no syncope is appreciated. Review of all other systems initially is negative. He had 3 tr oponins that were negative. His EKG showed complete left bundle-branch block. He is nervous and anx ious. He gives no history of sudden in the family or significant ventricular arrhythmia. He was told he had a heart murmur when he was a kid. He had no history of "holes in the heart, blue baby or con genital heart disease." No history of rheumatic fever and no history of endocarditis. PAST MEDICAL HISTORY: As outlined above. PAST SURGICAL HISTORY: Unremarkable. MEDICATIONS: At home, multivitamin daily. ALLERGIES: No known drug allergies. FAMILY HISTORY: He said his father had a history of myocardial infarction in his 30s. SOCIAL HISTORY: He gives no history of cigarette smoking. He drinks alcohol mildly. He drinks caff eine mildly. He uses marijuana occasionally. He does have a history of sleep apnea, but he is not u sing a CPAP. REVIEW OF SYSTEMS: His review of all other systems essentially is negative. PHYSICAL EXAM: He is awake, alert, and oriented. He is nervous, he is not in acute distress. Vital s: Blood pressure is a little bit up, 141/68; pulse is 61, in sinus rhythm; temperature 98.2; respir atory rate 16. Head Exam: Normocephalic, atraumatic head. Ear, Nose, and Throat: Essentially victoriano gn. Neck: Supple. JVP is not elevated. No carotid bruits. No masses in the neck is appreciated. Chest: Clear to auscultation. No rales, no wheeze. No added sounds appreciated. Heart: Normal S1, S2. No added sounds, no gallops, no rubs. Abdomen: Benign. Positive bowel sounds. Extremities: No edema, no cyanosis, no clubbing. Skin Exam: Normal. Psych: Normal affect and mood. 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 DIAGNOSTIC STUDIES/LAB DATA: His EKG showed him to be in sinus rhythm with complete left bundle-bran ch block. Labs: White blood cell 8.5, hemoglobin 13.9, hematocrit 40 and platelets 233. D- dimer less than 20 0. The patient had a CT scan of the chest that showed no evidence for pulmonary embolism and no dissecti on, no pericardial effusion. His other labs showed his troponin to be 0.01 x3, CRP less than 1. TSH 1.89. Kidney functions were normal, potassium is 4. IMPRESSION: The patient is a 32-year-old male with patient with: 1. Newly diagnosed, but of unknown duration dilated cardiomyopathy of unclear etiology at the presen t time. Possible in the differential include hypertensive heart disease, idiopathic, viral illness, alcohol induced, tachycardia induced, and probably low in the list is coronary artery disease, althou gh cannot be completely excluded but his atypical symptoms of chest pain and troponin x3 is not sugge stive and especially he responded to pain medications for his right-sided chest pain. 2. Dilated cardiomyopathy. 3. Abnormal electrocardiogram with complete left bundle-branch block, which is chronic, at least goe s back to 2014 4. Mildly elevated blood pressure on his visit. 5. History of mild alcohol and mild marijuana abuse. 6. Sleep apnea. 7. Obesity. PLAN: This patient is not overtly in congestive heart failure. He needs further cardiac evaluation and it is in his best medical interest to have him fully evaluated at a tertiary center that supports cardiac myopathy/cardiac transplant center. I have discussed him at length with Dr. Pierson from the [facility] transplant center at the [facility] who kindly accepted the patient for transfer for further cardiac evaluation. It is my feeling that this patient will ne ed cardiac catheterization, at least cardiac MRI and further evaluation pending his clinical outcome. Meanwhile, we will initiate low dose beta alessandro given his relative resting bradycardia and low do se OBED inhibitor and will make arrangements to be transferring him there. I answered all his concern s and questions up to his satisfaction. I have discussed this with Dr. Isabel from the hospitalist raúl. TIME SPENT: More than half of at least 65 plus minutes was [id number] in education and counseling mode explaining all of the above and making further recommendations. [id number]/[facility] #: [id number]
== END 2018-01-14 14:55 | disposition short-term general hospital (02) ==
LOC: ED 09:52 → MEDTELE 13:54
PROVIDERS: ADMIT Internal Medicine; ATTEND Internal Medicine
DX: R07.9 Chest pain, unspecified (principal); I42.9 Cardiomyopathy, unspecified; I44.7 Left bundle-branch block, unspecified; R01.1 Cardiac murmur, unspecified; I10 Essential (primary) hypertension; R06.02 Shortness of breath; Z82.49 Family history of ischemic heart disease and other diseases of the circulatory system; Z79.899 Other long term (current) drug therapy; G47.30 Sleep apnea, unspecified; E66.9 Obesity, unspecified
CPT/HCPCS: 36415; 71045; 71275; 76705; 80048; 80053; 83605; 83690; 84443; 84484; 85025; 85379; 85610; 85652; 85730; 86140; 86618; 93005; 93306; 96374; 96375; 96376; 99284; A9270-GY; G0378; J1885; J2270; J2405; Q9967

== ENCOUNTER 2018-03-30 11:38 | Emergency (ER) | payer MEDICAID ==
[2018-03-30 11:47] VITALS: BP 116/61
--- NOTE | 2018-03-30 12:36 | UC ---
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 - History of Current Complaint Chief Complaint: UCSkin Time Seen by Provider: 03/30/18 12:03 Stated Complaint: BEE STING Hx Obtained From: Patient Onset/Duration: Sudden Onset, Lasting Days - 2 Skin Exposure Onset/Duration: Days Ago - 2 Timing: Constant Pain Intensity: 8 Pain Scale Used: 0-10 Numeric Location: Discrete Character: Pain, Redness Aggravating Factor(s): Nothing Alleviating Factor(s): Nothing Associated Signs & Symptoms: Positive: Rash - anterior left lower padilla from insect bite Related History: Insect Bite/Sting - Allergy/Home Medications Allergies/Adverse Reactions: Allergies Allergy/AdvReac Type Severity Reaction Status Date / Time No Known Allergies Allergy Verified 03/30/18 11:47 Review of Systems Constitutional: Negative Skin: Rash - lower anterior padilla Eyes: Negative ENT: Negative Respiratory: Negative Cardiovascular: Negative Gastrointestinal: Negative Genitourinary: Negative Motor: Negative Neurovascular: Negative Musculoskeletal: Negative Neurological: Negative Psychological: Negative Is Patient Immunocompromised?: No All Other Systems Reviewed And Are Negative: Yes PMH/Surg Hx/FS Hx/Imm Hx Previously Healthy: Yes - Surgical History Surgical History: None - Family History Known Family History: Positive: Cardiac Disease - Father of [place] - Social History Occupation: Employed Full-time Lives: With Family Alcohol Use: None Substance Use Type: None Smoking Status (MU): Never Smoked Tobacco Physical Exam Triage Information Reviewed: Yes Appearance: Well-Appearing, No Pain Distress, Well-Nourished Vital Signs: Initial Vital Signs Temp 98 F 03/30/18 11:44 Pulse 65 03/30/18 11:44 Resp 15 03/30/18 11:44 BP 116/61 03/30/18 11:44 Pulse Ox 100 03/30/18 11:44 Vital Signs Reviewed: Yes Eye Exam: Normal Eyes: Positive: Conjunctiva Clear ENT Exam: Normal ENT: Positive: Normal ENT inspection, Hearing grossly normal Neck exam: Normal Neck: Positive: Supple, Nontender Respiratory Exam: Normal Respiratory: Positive: Chest non-tender, Lungs clear, Normal breath sounds, No respiratory distress, No accessory muscle use Cardiovascular Exam: Normal Cardiovascular: Positive: RRR, No Murmur, Pulses Normal, Brisk Capillary Refill Musculoskeletal Exam: Normal Musculoskeletal: Positive: Strength Intact, ROM Intact Neurological Exam: Normal Neurological: Positive: Alert Psychological Exam: Normal Skin: Positive: rashes - left anterior padilla Course/Dx - Course Course Of Treatment: ice, elevation, keflex, prednisone, follow with pcp - Diagnoses Provider Diagnoses: insect bite left lower leg Discharge - Sign-Out/Discharge Documenting (check all that apply): Patient Departure - Discharge Plan Condition: Stable Disposition: HOME Prescriptions: Cephalexin CAP* [Keflex CAP*] 500 mg PO QID #20 cap predniSONE TAB* [Deltasone TAB*] 50 mg PO DAILY #4 tab Patient Education Materials: Diphenhydramine (By mouth), Insect Bite or Sting ( ED), R.I.C.E. Treatment (ED) Forms: *Work Release Referrals: [facility] [place] PHYSICIAN REFERRAL [Outside] - If Needed - Billing Disposition and Condition Condition: STABLE Disposition: Home
== END 2018-03-30 12:50 | disposition home or self-care (01) ==
LOC: UCEAST 11:38
DX: S80.862A Insect bite (nonvenomous), left lower leg, initial encounter (principal); W57.XXXA Bitten or stung by nonvenomous insect and other nonvenomous arthropods, initial encounter; Y92.9 Unspecified place or not applicable
CPT/HCPCS: 99201; G0463

== ENCOUNTER 2018-04-25 08:35 | Emergency (ER) | payer MEDICAID ==
[2018-04-25] MEDS ORDERED: methylPREDNISolone 125 MG* 2 ML VIAL IV ONE (08:40)
[2018-04-25] MEDS ORDERED: diPHENhydraMINE IV* 50 MG/ML 1 ml VIAL (BENADRYL) IV ONE (08:41)
[2018-04-25] MEDS ORDERED: Famotidine IV* 10 MG/ML 2 ML (20 mg) IV SLOW PU ONE (08:41)
--- OUTSIDE RECORDS SUMMARY | 2018-04-25 08:44 | XMS REPORT ---
:1985 External Reference #:[id number] Author Organization [employer] Address [address] [place] [address] [place] [address] Phone [phone] Care Team Providers Name Role Phone Jose M Kessler D.O. Primary Care Physician Unavailable Payers Type Date Identification Numbers Payment Provider Subscriber Medicaid Policy Number: [id number] Medicaid Marck Uribe JR Group Name: 1 1 [address] PayID: [id number] [place] [address] Problems Description No Information Social History Type Date Description Comments Marital Status Significant Other Cigarette Use Never Smoked Cigarettes ETOH Use Occasionally consumes alcohol Smoking Patient has never smoked Recreational Drug Use Denies Drug Use Daily Caffeine Consumes on average 16oz of energy drinks per day Exercise Type/Frequency Exercises rarely Allergies, Adverse Reactions, Alerts Description No Information Medications Medication Date Status Form Strength Qnty SIG Indications Ordering Provider Lisinopril Active Tablets 15mg 90tabs 1 by Justin Da Silva 018 yanique Gross M.D. every day Metoprolol Active Tablets ER 100mg 30tabs 1 by Justin Da Silva Succinate ER 018 24HR mouth Loraine Gross every day Tramadol HCL Active Tablets 50mg 45tabs 1-2 po Bernardino Hurley 010 qid nikia Alicia M.D. Vital Signs Date Vital Result Comment 04/13/2018 Weight 252.00 lb w/ shoes Heart Rate 68 /min BP Systolic Sitting 122 mmHg lue lrg cuff BP Diastolic Sitting 68 mmHg lue lrg cuff BP Systolic Standing 110 mmHg lue lrg cuff BP Diastolic Standing 68 mmHg lue lrg cuff Respiratory Rate 18 /min Ejection Fraction 20-25% 01/16/2018 echo Results Description No Information Procedures Date CPT Code Description Status 01/14/2018 58744 ECHO Transthorasic Realtime 2D W Doppler & Color Flow Completed Hosp 01/14/2018 68639 EKG, Interpretation Only Completed Encounters Type Date Location Provider CPT E/M Dx Office Visit 04/13/2018 [facility] Justin Gross, [address] R07.9 9:45a Oscar Baron I44.7 I42.9 Office Visit 01/14/2018 1:06p [facility] [address] R07.9 Hospitalists I44.7 Office Visit 01/13/2018 1:05p [facility] Jarett Siddiqui, [address] R07.9 Hospitalists N.[place]atnam I44.7 Office Visit 08/18/2010 1:00p [facility] Bernardino Alicia, [address] 721.3 Of Oscar Baron Plan of Care Future Appointment(s):06/10/2018 9:00 am - Justin Gross M.D. at [facility]04/13/2018 - Justin Gross M.D.R07.9 Chest pain, [id number] Left bundle-branch block, [id number] Cardiomyopathy, unspecifiedFollow up:end mayRecommendations:Consider calling Dr De La Torre and changing Lisinopril to na "ARB"
[2018-04-25] MEDS ORDERED: NS 0.9% 1000 ML* 1,000 ML IV ONE (09:01)
[2018-04-25 09:13] VITALS: BP 119/80
--- NOTE | 2018-04-25 09:15 | UC ---
Allergic Reaction HPI - HPI Summary HPI Summary: [facility] attending Te Khanna MD. Pt is a 33 y/o M presents to s/p being stung by bee experiencing the onset of an allergic reaction. Assoc. Sx: Hives, lip/face swelling erythema, trouble hearing. Denies: throat tightening, SOB, CP. He reports that his head feels like it is on fire. - History of Current Complaint Chief Complaint: UCAllergicReaction Stated Complaint: BEE STING Time Seen by Provider: 04/25/18 08:39 Hx Obtained From: Patient Onset/Duration: Sudden Onset, Still Present, Worse Since - onset Severity Currently: None Pain Intensity: 0 Pain Scale Used: 0-10 Numeric Location: Diffuse Character: Hives Aggravating Factor(s): Nothing Alleviating Factor(s): Nothing Associated Signs And Symptoms: Positive: Rash - hives. Negative: Chest Pain, Difficulty Breathing, Hoarseness, Throat Tightening - Allergies/Home Medications Allergies/Adverse Reactions: Allergies Allergy/AdvReac Type Severity Reaction Status Date / Time No Known Allergies Allergy Verified 03/30/18 11:47 Home Medications: Home Medications traMADol TAB* [Ultram*] 1 tab PO DAILY 04/25/18 [History Confirmed 04/25/18] PMH/Surg Hx/FS Hx/Imm Hx Other Endocrine History: NEG: DM Cardiovascular History: Cardiac Disease, Hypertension, Other - cardiomyopathy Other Cardiovascular History: . - Surgical History Surgical History: None - Family History Known Family History: Positive: Cardiac Disease - Father of [place], Hypertension, Diabetes - Social History Occupation: Employed Full-time Lives: Dormitory/Roommates Alcohol Use: None Substance Use Type: None Smoking Status (MU): Never Smoked Tobacco Review of Systems Skin: Rash - hives, Other - POS: face/lip swelling Eyes: Other - Trouble hearing out of L ear ENT: Other - Trouble hearing out of L ear. All Other Systems Reviewed And Are Negative: Yes Physical Exam - Summary Physical Exam Summary: General: well-appearing, no pain distress Skin: warm, color reflects adequate perfusion, dry. Diffuse hives on face/lips, inside arms/axilla. Head: normal Eyes: EOMI, BERTHA ENT: normal Neck: supple, nontender Respiratory: CTA, breath sounds present. Cardiovascular: RRR Abdomen: soft, nontender Bowel: present Musculoskeletal: normal, strength/ROM intact Neurological: sensory/motor intact, A&O x3 Psychological: affect/mood appropriate Triage Information Reviewed: Yes Vital Signs: Initial Vital Signs Temp 99.4 F 04/25/18 08:36 Pulse 90 04/25/18 08:36 Resp 18 04/25/18 08:36 BP 140/90 04/25/18 08:36 Pulse Ox 98 04/25/18 08:36 Vital Signs Reviewed: Yes Diagnostics - EKG EKG Comments: 911. NSR, 83 bpm, LBBB. Cardiac Rate: NL - [address] Segment: Normal Re-Evaluation - Re-Evaluation First Eval Re-Evaluation Time: 10:05 Change: Improved Comment: Much less erythema, rash improved, hearing nml, ear canals open. Discussed calling rehabilitation services manager with patient to see if eppipen usage is safe with his existing heart conditions. Allergic Reaction Course/Dx - Course Course Of Treatment: Pt was seen by provider. Pt will be D/C home and recommended to speak with rehabilitation services manager to see if eppipen can be administered with his existing heart conditions. IMPROVED IN CLINIC. NO CHEST PAIN. DISCUSSED FURTHER TREATMENT OF ALLERGIC REACTION. DISCUSSED THE ROLE OF EPINEPHRINE FOR SEVERE ALLERGIC REACTION AND IT'S CARDIAC EFFECTS. ASKED THE PATIENT TO DISCUSS THE SAFETY OF USING AN EPIPEN. F/U PMD AND WATER SUPERINTENDENT. RECHECK SOONER IF WORSE. - Differential Dx/Diagnosis Provider Diagnoses: ALLERGIC REACTION TO BEE STING Discharge - Sign-Out/Discharge Documenting (check all that apply): Patient Departure - Discharge Plan Condition: Stable Disposition: HOME Prescriptions: EPINEPHrine [Epipen 2-Jah] 0.3 mg IM ONCE PRN #1 inj PRN Reason: Allergy Symptoms Famotidine TAB* [Pepcid 20 MG TAB*] 20 mg PO BID PRN #8 tab PRN Reason: Allergy Symptoms Patient Education Materials: Insect Bite or Sting (ED), General Allergic Reaction (ED) Referrals: [facility] [place] [facility] [Outside] Justin Gross MD [Medical Doctor] - Additional Instructions: FOLLOW UP WITH YOUR PRIMARY CARE DOCTOR AND WATER SUPERINTENDENT. CONTACT YOUR WATER SUPERINTENDENT TO DETERMINE IF USING EPINEPHRINE FOR AN AIRWAY THREATENING ALLERGIC REACTION IS SAFE. TAKE BENADRYL 50MG EVERY 6 HOURS NEEDED. TAKE PEPCID 20MG TWICE A DAY NEEDED. TAKE THE PREDNISONE DIRECTED NEEDED. GET RECHECKED FOR ANY WORSENING OF YOUR CONDITION OR QUESTIONS OR CONCERNS. - Billing Disposition and Condition Condition: STABLE Disposition: Home
== END 2018-04-25 10:29 | disposition home or self-care (01) ==
LOC: UCEAST 08:35
DX: T63.441A Toxic effect of venom of bees, accidental (unintentional), initial encounter (principal); L50.9 Urticaria, unspecified; Y92.9 Unspecified place or not applicable; I44.7 Left bundle-branch block, unspecified; Z82.49 Family history of ischemic heart disease and other diseases of the circulatory system; Z83.3 Family history of diabetes mellitus
CPT/HCPCS: 93005; 96360; 96374; 96376; 99212; G0463; J1200; J2930

== ENCOUNTER 2018-10-13 09:22 | Emergency (ER) | payer MEDICAID ==
--- NOTE | 2018-10-13 09:51 | ED ---
HPI Chest Pain - HPI Summary HPI Summary: This patient is a 33 year old male accompanied by his with a cc of chest pain that began last night at 1999. He was jackhammering last night prior to the onset and the pain began after he finished. He states it has not gotten worse or better since and has been constant. He does report the pain is worse with deep breaths and if he palpates it. He rates the pain 8/10 in severity and states it radiates into his shoulder and into the back of his neck. He also c/o REYES and SOB. Pt states he has had a similar pain in the past that was worked up and dx as cardiomyopathy, LBBB, and ejection fraction. He sees a motor expert in [place] and follows up with Dr. Gross in [facility] [place]. He takes Lisinopril and metoprolol. He has not taken anything for pain. - History of Current Complaint Chief Complaint: EDChestWallPain Time Seen by Provider: 10/13/18 09:32 Hx Obtained From: Patient Onset/Duration: Still Present Time of Onset: 20:00 Timing: Constant Initial Severity: Severe Current Severity: Moderate Pain Intensity: 8 Pain Scale Used: 0-10 Numeric Chest Pain Location: Left Anterior Chest Pain Radiates: Yes Chest Pain Radiates To:: Shoulder, Neck Aggravating Factor(s): Deep Breaths, Other: - palpation Associated Signs and Symptoms: Positive: Other: - REYES SOB - Allergy/Home Medications Allergies/Adverse Reactions: Allergies Allergy/AdvReac Type Severity Reaction Status Date / Time No Known Allergies Allergy Verified 10/13/18 09:26 PMH/Surg Hx/FS Hx/Imm Hx Endocrine/Hematology History: Denies: Hx Thyroid Disease Cardiovascular History: Reports: Hx Hypertension, Other Cardiovascular Problems/ Disorders - LBBB and cardiomyopathy Respiratory History: Denies: Hx Asthma Comment Only: Other Respiratory Problems/Disorders - insomnia History: Denies: Hx Benign Prostatic Hyperplasia, Hx Kidney Infection Sensory History: Denies: Hx Contacts or Glasses, Hx Legally Blind, Hx Deafness, Hx Hearing Aid Opthamlomology History: Denies: Hx Contacts or Glasses, Hx Legally Blind Neurological History: Denies: Hx Spinal Cord Injury Psychiatric History: Denies: Hx Panic Disorder - Immunization History Date of Influenza Vaccine: 08/2018 Immunizations Up to Date: Yes Infectious Disease History: No Infectious Disease History: Denies: Traveled Outside the US in Last 30 Days - Family History Known Family History: Positive: Cardiac Disease - Father of [place], Hypertension, Diabetes - Social History Alcohol Use: Rare Substance Use Type: Reports: Marijuana Substance Use Comment - Amount & Last Used: occasionally Hx Tobacco Use: Yes - HAS PREVIOUSLY SMOKED CIGARS Smoking Status (MU): Never Smoked Tobacco Review of Systems Negative: Fever Positive: Chest Pain Positive: Shortness Of Breath Positive: Headache All Other Systems Reviewed And Are Negative: Yes Physical Exam - Summary Physical Exam Summary: Appearance: The patient is well-nourished in no acute distress and in no acute pain. Skin: The skin is warm and dry and skin color reflects adequate perfusion. HEENT: The head is normocephalic and atraumatic. The pupils are equal and reactive. The conjunctivae are clear and without drainage. Nares are patent and without drainage. Mouth reveals moist mucous membranes and the throat is without erythema and exudate. The external ears are intact. The ear canals are patent and without drainage. The tympanic membranes are intact. Neck: The neck is supple with full range of motion and non-tender. There are no carotid bruits. There is no neck vein distension. Respiratory: Chest is non-tender. Lungs are clear to auscultation and breath sounds are symmetrical and equal. Cardiovascular: Heart is regular rate and rhythm. There is no murmur or rub auscultated. There is no peripheral edema and pulses are symmetrical and equal. Abdomen: The abdomen is soft and non-tender. There are normal bowel sounds heard in all four quadrants and there is no organomegaly palpated. Musculoskeletal: There is no back tenderness noted. Extremities are non-tender with full range of motion. There is good capillary refill. There is no peripheral edema or calf tenderness elicited. TTP in the left pectoralis Neurological: Patient is alert and oriented to person, place and time. The patient has symmetrical motor strength in all four extremities. Cranial nerves are grossly intact. Deep tendon reflexes are symmetrical and equal in all four extremities. Psychiatric: The patient has an appropriate affect and does not exhibit any anxiety or depression. Triage Information Reviewed: Yes Vital Signs On Initial Exam: Initial Vitals Temp Pulse Resp BP Pulse Ox 97.9 F 86 16 128/86 97 10/13/18 09:26 10/13/18 09:26 10/13/18 09:26 10/13/18 09:26 10/13/18 09:26 Vital Signs Reviewed: Yes Diagnostics - Vital Signs Vital Signs Temp Pulse Resp BP Pulse Ox 10/13/18 09:26 97.9 F 86 16 128/86 97 - Laboratory Result Diagrams: 10/13/18 10:15 10/13/18 10:15 Lab Statement: Any lab studies that have been ordered have been reviewed, and results considered in the medical decision making process. - Radiology CXR Radiology Interpretation Completed By: Radiologist Summary of Radiographic Findings: No radiographic evidence for cardiopulmonary disease. Dr. Perez has reviewed this report. - EKG 0931 Cardiac Rate: NL EKG Rhythm: Sinus Rhythm - at 75 BPM Summary of EKG Findings: Non specific t wave inversion inferior septal leads Re-Evaluation - Re-Evaluation First Eval Re-Evaluation Time: 10:16 Change: Improved Comment: Pt states his pain has decreased to 1/10. Chest Pain Course/Dx - Course Course Of Treatment: Mr. Uribe was working in his basement last evening using a jackhammer. Shortly after he stopped he began to have pain in his left anterior lateral chest area. It has lasted since then without change. On arrival he was not toxic in appearance but looks to be in some pain distress although his vitals are stable. He could exacerbate the pain by moving his left arm, palpating his left pectoralis area or taking a deep breath. There were no associated symptoms. He has a complicated history with some sort of cardiomyopathy from which she has a left bundle branch block and a decreased ejection fraction. His EKG showed inverted T waves in the inferoseptal distribution. We have half a dozen or so old EKGs all of which showed a left bundle branch block which is not present today. Chest x-ray and labs were unremarkable including a delayed troponin. I spoke with his motor expert Dr. Tamez who felt that he could be discharged given his workup but requested that he see the patient tomorrow in the office. Mr. Uribe is agreeable to that. - Diagnoses Provider Diagnoses: Chest pain - Provider Notifications Discussed Care Of Patient With: Robson Azul MD Time Discussed With Above Provider: 12:00 Instructed by Provider To: Other - This is the patients main motor expert. He suggested repeat troponin, if it is negative d/c the pt, and he will f/u in the office. Discharge - Sign-Out/Discharge Documenting (check all that apply): Patient Departure - Discharge Plan Condition: Stable Disposition: HOME Patient Education Materials: Chest Pain (ED) Referrals: Robson Azul MD [Medical Doctor] - 2 Days Additional Instructions: RETURN TO THE EMERGENCY DEPARTMENT FOR CHANGING OR WORSENING SYMPTOMS - Billing Disposition and Condition Condition: STABLE Disposition: Home - Attestation Statements Document Initiated by Scribe: Yes Documenting Scribe: Ziyad Bautista Provider For Whom Radha is Documenting (Include Credential): Marck Perez MD Scribe Attestation: Ziyad Clark , scribed for Marck Perez MD on 10/13/18 at 1623. Scribe Documentation Reviewed: Yes Provider Attestation: The documentation as recorded by the Ziyad cruz accurately reflects the service I personally performed and the decisions made by me, Marck Perez MD Status of Scribe Document: Viewed
[2018-10-13] MEDS ORDERED: Morphine VIAL* 4 MG/ML VIAL (1 ml vial) IV ONE (09:52)
[2018-10-13] MEDS ORDERED: Aspirin TAB* 325 MG PO ONE (09:53)
[2018-10-13] MEDS ORDERED: Aspirin 81 mg CHEW TAB* 81 MG TAB.CHEW ONE ×2 (10:04)
[2018-10-13] MEDS ORDERED: Aspirin 81 mg CHEW TAB* 81 MG TAB.CHEW PO ONE (10:05)
[2018-10-13 10:32] LABS: ABS Basophils 0.1 10^3/ul (0-0.2); ABS Eosinophils 0.5 10^3/ul (0-0.6); ABS Lymphocytes 2.1 10^3/ul (1.0-4.8); ABS Monocytes 0.8 10^3/ul (0-0.8); ABS Neutrophils 6.3 10^3/ul (1.5-7.7); ABS Nucleated RBC 0 10^3/ul; Eosinophil % 4.8 %; Hematocrit 43 % (42-52); Hemoglobin 14.6 g/dl (14.0-18.0); Lymphocyte % 21.1 %; Mean Corpuscular HGB Conc 34 g/dl (31-36); Mean Corpuscular Hemoglobin 30 pg (27-31); Mean Corpuscular Volume 89 fL (80-94); Mean Platelet Volume 8.6 fL (7.4-10.4); Nucleated Red Blood Cells % 0.1; Platelet Count 274 10^3/ul (150-450); Red Blood Count 4.83 10^6/ul (4.00-5.40); Red Cell Distribution Width 13 % (10.5-15); White Blood Count 9.8 10^3/ul (3.5-10.8)
[2018-10-13 10:56] LABS: Albumin 4.1 g/dL (3.2-5.2); Albumin/Globulin Ratio 1.3 (1-3); BUN/Creatinine Ratio 16.7 (8-20); Calcium 9.4 mg/dL (8.6-10.3); EGFR African American 126.6 (>60); EGFR Non-African American 104.6 (>60); Globulin 3.2 g/dL (2-4); Potassium 3.9 mmol/L (3.5-5.0); Total Bilirubin 0.7 mg/dL (0.2-1.0); Total Protein 7.3 g/dL (6.4-8.9)
[2018-10-13] MEDS ORDERED: Ketorolac INJ* 30 MG/ML 1 ML VIAL IV PUSH ONE (10:56)
[2018-10-13 13:42] VITALS: BP 130/81
== END 2018-10-13 13:59 | disposition home or self-care (01) ==
LOC: ED 09:22
DX: R07.9 Chest pain, unspecified (principal); I44.7 Left bundle-branch block, unspecified; I10 Essential (primary) hypertension; Z87.891 Personal history of nicotine dependence
CPT/HCPCS: 36415; 71046; 80053; 83605; 83880; 84484; 85025; 85379; 93005; 96374; 96375; 99283; A9270-GY; J1885; J2270

== ENCOUNTER 2018-12-21 12:28 | Emergency (ER) | payer MEDICAID ==
--- NOTE | 2018-12-21 12:49 | ED ---
HPI Chest Pain - HPI Summary HPI Summary: A 33 y/o M with pert PMHx: CHF, cardiomyopathy presents to ED with c/o CP different from baseline onset three days ago. Pt has CP daily, but feels it's different. He rates the pain as 8 out of 10, describes it as crushing, and it radiates to his LUE. Aggravating factors for the CP: deep breaths. His last ejection fraction was ~ 40. He sees a bun panner in [place] approx every 6 months, and sees Dr. Gross, cardio, locally. Pt has secondary complaint of vomiting for the past 2-3 months every morning, which has worsened to occurring all day long in the past three days. Last episode was at 1100 this AM. Associated sx: abd pain, lightheadedness, near-syncope. He's taken Pepto- Bismal to no relief. Current medications include Lisinopril, Metoprolol, he has Rx for tramadol but doesn't usually take it. Does not take Aspirin. Occ takes Motrin when he has a REYES. Pt has been staining floors for the past two days without a ventilation mask. Brother is in hospital due to vomiting, but the patient has not seen him recently. - History of Current Complaint Chief Complaint: EDChestPainROMI Time Seen by Provider: 12/21/18 12:46 Hx Obtained From: Patient, Family/Double End Production Grinder - Onset/Duration: Started Days Ago, Atraumatic, Still Present Timing: Constant, Lasting Days Initial Severity: Moderate Current Severity: Severe Pain Intensity: 8 Pain Scale Used: 0-10 Numeric Chest Pain Radiates: Yes Chest Pain Radiates To:: Arm - LUE Character: Crushing Aggravating Factor(s): Deep Breaths Associated Signs and Symptoms: Positive: Lightheadedness, Nausea, Abdominal Pain , Vomiting, Other: - pos: near-syncope - Allergy/Home Medications Allergies/Adverse Reactions: Allergies Allergy/AdvReac Type Severity Reaction Status Date / Time bee venom protein (honey bee) Allergy Airway Verified 12/21/18 13:12 Obstruction PMH/Surg Hx/FS Hx/Imm Hx Previously Healthy: No Endocrine/Hematology History: Denies: Hx Thyroid Disease Cardiovascular History: Reports: Hx Congestive Heart Failure - & CARDIAC MYOPATHY, Hx Hypertension, Other Cardiovascular Problems/Disorders - LBBB and cardiomyopathy Respiratory History: Denies: Hx Asthma Comment Only: Other Respiratory Problems/Disorders - insomnia History: Denies: Hx Benign Prostatic Hyperplasia, Hx Kidney Infection Sensory History: Denies: Hx Contacts or Glasses, Hx Legally Blind, Hx Deafness, Hx Hearing Aid Opthamlomology History: Denies: Hx Contacts or Glasses, Hx Legally Blind Neurological History: Denies: Hx Spinal Cord Injury Psychiatric History: Denies: Hx Panic Disorder - Immunization History Date of Influenza Vaccine: 08/2018 Infectious Disease History: No Infectious Disease History: Denies: Traveled Outside the US in Last 30 Days - Family History Known Family History: Positive: Cardiac Disease - Father of [place], father - cardiomyopathy , Hypertension, Diabetes - Social History Occupation: Employed Full-time Lives: With Family Alcohol Use: Rare Hx Substance Use: Yes Substance Use Type: Reports: Marijuana Substance Use Comment - Amount & Last Used: occasionally Hx Tobacco Use: Yes - HAS PREVIOUSLY SMOKED CIGARS Smoking Status (MU): Never Smoked Tobacco Review of Systems Positive: Chest Pain Positive: Abdominal Pain, Vomiting, Nausea Neurological: Other - pos: lightheadedness Positive: Syncope - near-syncope All Other Systems Reviewed And Are Negative: Yes Physical Exam - Summary Physical Exam Summary: Appearance: Well appearing, no pain distress Skin: warm, dry, reflects adequate perfusion Head/face: normal Eyes: EOMI, BERTHA ENT: mucous membranes moist Neck: supple, non-tender Respiratory: CTA, breath sounds present Cardiovascular: RRR, pulses symmetrical, no murmur, no peripheral edema Abdomen: non-tender, soft Bowel Sounds: present Musculoskeletal: normal, strength/ROM intact, no peripheral edema Neuro: normal, sensory motor intact, A&Ox3 Triage Information Reviewed: Yes Vital Signs On Initial Exam: Initial Vitals Temp Pulse Resp BP Pulse Ox 97.9 F 88 20 109/65 97 12/21/18 12:34 12/21/18 12:34 12/21/18 12:34 12/21/18 12:34 12/21/18 12:34 Vital Signs Reviewed: Yes Diagnostics - Vital Signs Vital Signs Temp Pulse Resp BP Pulse Ox 12/21/18 12:34 97.9 F 88 20 109/65 97 - Laboratory Result Diagrams: 12/21/18 13:10 12/21/18 13:10 Lab Statement: Any lab studies that have been ordered have been reviewed, and results considered in the medical decision making process. - Radiology CXR Radiology Interpretation Completed By: Radiologist Summary of Radiographic Findings: IMPRESSION: NO EVIDENCE FOR ACUTE DISEASE. ED provider has reviewed this report. - EKG 1240 Cardiac Rate: NL - 77bpm EKG Rhythm: Sinus Rhythm ST Segment: Non-Specific EKG Comparison: Other - Previous EKG on 04/25/18 also shows LBBB Summary of EKG Findings: nml axis, LBBB Re-Evaluation - Re-Evaluation 1 Re-Evaluation Time: 14:00 Change: Unchanged Comment: Discussing results with pt and plans for DC. Chest Pain Course/Dx - Course Course Of Treatment: Patient with a history of cardiomyopathy presents with exacerbation of his daily chronic chest pain as well as nausea and vomiting. History with IV fluids, Toradol and Zofran with significant improvement. He'll be discharged on similar in addition GI meds will be given. - Chest Pain Differential Diagnosis/HQI/PQRI: Acute [place], CHF, GI Disease, Lower Respiratory Infection - Diagnoses Provider Diagnoses: Acute gastritis, Chronic chest pain Discharge - Sign-Out/Discharge Documenting (check all that apply): Patient Departure - DC Patient Received Moderate/Deep Sedation with Procedure: No - Discharge Plan Condition: Improved Disposition: HOME Prescriptions: Famotidine TAB* [Pepcid 20 MG TAB*] 20 mg PO BID #10 tab Ondansetron ODT TAB* [Zofran 4 MG Odt TAB*] 4 mg PO Q6H PRN #12 tab.odt PRN Reason: Nausea Sucralfate TAB* [Carafate*] 1 gm PO ACHS #30 tab Patient Education Materials: Gastritis (ED) Referrals: Sally Kessler MD [Primary Care Provider] - Additional Instructions: Drink plenty of fluids, low salt diet. Gatorade G2 may help. Return with increasing chest pain, difficulty breathing, unable to keep down fluids, worse, new symptoms or other concerns. Today, call your doctor to schedule prompt follow-up - Billing Disposition and Condition Condition: IMPROVED Disposition: Home - Attestation Statements Document Initiated by Scribe: Yes Documenting Scribe: Cheri Malloy Provider For Whom Scribe is Documenting (Include Credential): Dr. Garcia Dias MD Scribe Attestation: I, Cheri Malloy, scribed for Dr. Garcia Dias MD on 12/21/18 at 1650. Scribe Documentation Reviewed: Yes Provider Attestation: The documentation as recorded by the scribe, Cheri Malloy accurately reflects the service I personally performed and the decisions made by me, Dr. Garcia Dias MD Status of Scribe Document: Viewed
[2018-12-21] MEDS ORDERED: NS 0.9% 1000 ML** 1,000 ML IV ONE (12:54)
[2018-12-21] MEDS ORDERED: Famotidine TAB* 20 MG PO ONE (13:00)
[2018-12-21] MEDS ORDERED: Ketorolac INJ* 30 MG/ML 1 ML VIAL IV PUSH ONE (13:00)
[2018-12-21] MEDS ORDERED: Ondansetron INJ* 2 MG/ML VIAL IV ONE (13:00)
[2018-12-21 13:17] LABS: ABS Basophils 0.1 10^3/ul (0-0.2); ABS Eosinophils 0.2 10^3/ul (0-0.6); ABS Lymphocytes 2.1 10^3/ul (1.0-4.8); ABS Neutrophils 7.8 10^3/ul (1.5-7.7); ABS Nucleated RBC 0 10^3/ul; Eosinophil % 1.5 %; Hematocrit 41 % (36-46); Hemoglobin 14.2 g/dL (14.0-18.0); Mean Corpuscular HGB Conc 35 g/dL (31-36); Mean Corpuscular Hemoglobin 31 pg (27-31); Mean Corpuscular Volume 89 fL (80-94); Mean Platelet Volume 8.6 fL (7.4-10.4); Nucleated Red Blood Cells % 0; Platelet Count 321 10^3/uL (150-450); Red Blood Count 4.63 10^6 /uL (4.18-5.48); Red Cell Distribution Width 13 % (10.5-15); White Blood Count 11.2 10^3/uL (3.5-10.8)
[2018-12-21 13:24] LABS: INR 1.02 (0.77-1.02)
[2018-12-21 13:33] LABS: Albumin 4.5 g/dL (3.2-5.2); Albumin/Globulin Ratio 1.5 (1-3); Calcium 9.4 mg/dL (8.6-10.3); EGFR African American 96.8 (>60); Total Bilirubin 0.6 mg/dL (0.2-1.0); Total Protein 7.5 g/dL (6.4-8.9)
[2018-12-21 13:34] LABS: Troponin I 0.01 ng/mL (<0.04)
[2018-12-21 14:13] LABS: TSH (Thyroid Stimulating Horm) 1.4 mcIU/mL (0.34-5.60)
[2018-12-21 14:30] VITALS: BP 117/65
== END 2018-12-21 14:29 | disposition home or self-care (01) ==
LOC: ED 12:28
DX: R07.9 Chest pain, unspecified (principal); G89.29 Other chronic pain; R94.31 Abnormal electrocardiogram [ECG] [EKG]; I11.0 Hypertensive heart disease with heart failure; I50.9 Heart failure, unspecified; G72.89 Other specified myopathies; I44.7 Left bundle-branch block, unspecified; Z87.891 Personal history of nicotine dependence; K29.00 Acute gastritis without bleeding
CPT/HCPCS: 36415; 71045; 80053; 83605; 83880; 84443; 84484; 85025; 85610; 93005; 96361; 96374; 96375; 99283; A9270-GY; J1885; J2405

== ENCOUNTER 2019-01-16 11:09 | Emergency (ER) | payer MEDICAID ==
--- NOTE | 2019-01-16 11:29 | ED ---
Complex/Multi-Sys Presentation - HPI Summary HPI Summary: Patient is a 33 year old M presenting to ED with complaints of chest pain, dizziness, near syncope, chills, and tremors onsetting earlier today. 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 Patient notes that he had been working without a mask, states that his Sx onset when he began to smell the fumes. Chest pain is described as shooting, patient states that the pain radiates down his left arm. Dizziness is described as light-headedness. Per triage, "Pt also complains of sweating, CP and pounding heart". In the room, the patient states, "I feel so weird". PMHx of CHF, he is followed by box liner Dr. Azul in [place]. He reports having a cardiac stress test within the past year, patient is scheduled for another stress test in February. He states that his CHF is thought to be "hereditary ". FMHx of cardiac disease. Chest pain is rated 7-8/10 in the room. Nothing is noted to aggravate/alleviate Sx. Home medications and allergies are reviewed. Patient is present with female process improvement analyst. - History Of Current Complaint Chief Complaint: EDChestPainROMI Hx Obtained From: Patient Onset/Duration: Sudden Onset, Lasting Hours, Still Present Timing: Constant, Hours Severity Currently: Severe - 7-8/10 Location: Pain At: - chest, Radiates To: - left arm Character: Throbbing - "shooting" pain Aggravating Factor(s): nothing Alleviating Factor(s): nothing Associated Signs And Symptoms: Positive: Dizziness, Chest Pain, Palpitations, Diaphoresis, Other - near syncope, chills, tremors - Allergies/Home Medications Allergies/Adverse Reactions: Allergies Allergy/AdvReac Type Severity Reaction Status Date / Time bee venom protein (honey bee) Allergy Airway Verified 01/16/19 11:10 Obstruction Home Medications: Home Medications Lisinopril TAB* [Prinivil TAB*] 20 mg PO DAILY 01/16/19 [History Confirmed 01/16] Metoprolol Succinate XL TAB* [Toprol XL TAB*] 100 mg PO DAILY 01/16/19 [History Confirmed 01/16/19] traMADol TAB* [Ultram*] 50 mg PO Q4HR PRN 01/16/19 [History Confirmed 01/16/19] PMH/Surg Hx/FS Hx/Imm Hx Endocrine/Hematology History: Denies: Hx Thyroid Disease Cardiovascular History: Reports: Hx Congestive Heart Failure - & CARDIAC MYOPATHY, Hx Hypertension, Other Cardiovascular Problems/Disorders - LBBB and cardiomyopathy Respiratory History: Denies: Hx Asthma Comment Only: Other Respiratory Problems/Disorders - insomnia History: Denies: Hx Benign Prostatic Hyperplasia, Hx Kidney Infection Sensory History: Denies: Hx Contacts or Glasses, Hx Legally Blind, Hx Deafness, Hx Hearing Aid Opthamlomology History: Denies: Hx Contacts or Glasses, Hx Legally Blind Neurological History: Denies: Hx Spinal Cord Injury Psychiatric History: Denies: Hx Panic Disorder - Immunization History Date of Influenza Vaccine: 08/2018 Infectious Disease History: No Infectious Disease History: Denies: Traveled Outside the [place] in Last 30 Days - Family History Known Family History: Positive: Cardiac Disease - Father of [place], father - cardiomyopathy , Hypertension, Diabetes - Social History Alcohol Use: Rare Hx Substance Use: Yes Substance Use Type: Reports: Marijuana Substance Use Comment - Amount & Last Used: occasionally Hx Tobacco Use: Yes - HAS PREVIOUSLY SMOKED CIGARS Smoking Status (MU): Never Smoked Tobacco Review of Systems Constitutional: Other - POSITIVE - TREMORS Positive: Chills, Skin Diaphoresis Positive: Palpitations, Chest Pain Neurological: Other - POSITIVE - DIZZINESS Positive: Syncope - NEAR All Other Systems Reviewed And Are Negative: Yes Physical Exam - Summary Physical Exam Summary: VITAL SIGNS: Reviewed. GENERAL: Patient is a well-developed and nourished male who is lying comfortable in the stretcher. Patient is not in any acute respiratory distress. HEAD AND FACE: No signs of trauma. No ecchymosis, hematomas or skull depressions. No sinus tenderness. EYES: PERRLA, EOMI x 2, No injected conjunctiva, no nystagmus. EARS: Hearing grossly intact. Ear canals and tympanic membranes are within normal limits. MOUTH: Oropharynx within normal limits. NECK: Supple, trachea is midline, no adenopathy, no JVD, no carotid bruit, no c- spine tenderness, neck with full ROM. CHEST: Symmetric, no tenderness at palpation LUNGS: Clear to auscultation bilaterally. No wheezing or crackles. CVS: Regular rate and rhythm, S1 and S2 present, no murmurs or gallops appreciated. ABDOMEN: Soft, non-tender. No signs of distention. No rebound no guarding, and no masses palpated. Bowel sounds are normal. EXTREMITIES: FROM in all major joints, no edema, no cyanosis or clubbing. NEURO: Alert and oriented x 3. No acute neurological deficits. Speech is normal and follows commands. SKIN: Dry and warm Triage Information Reviewed: Yes Vital Signs On Initial Exam: Initial Vitals Temp Pulse Resp BP Pulse Ox 98.1 F 85 20 165/85 99 01/16/19 11:09 01/16/19 11:09 01/16/19 11:09 01/16/19 11:09 01/16/19 11:09 Vital Signs Reviewed: Yes Diagnostics - Vital Signs Vital Signs Temp Pulse Resp BP Pulse Ox 01/16/19 11:09 98.1 F 85 20 165/85 99 - Laboratory Result Diagrams: 01/16/19 11:40 01/16/19 11:40 Lab Statement: Any lab studies that have been ordered have been reviewed, and results considered in the medical decision making process. - Radiology CHEST X-RAY Radiology Interpretation Completed By: Radiologist Summary of Radiographic Findings: IMPRESSION: NO ACTIVE CARDIOPULMONARY DISEASE. THIS REPORT WAS REVIEWED BY DR. SALAMANCA. - EKG 1131 Cardiac Rate: NL - rate of 69 BPM EKG Rhythm: Sinus Rhythm Summary of EKG Findings: EKG showed sinus rhythm with rate of 69 BPM, no ST elevation, T-wave inversion in leads V1-V4. 1208 Cardiac Rate: NL - rate of 79 BPM EKG Rhythm: Sinus Rhythm Summary of EKG Findings: EKG showed NSR with rate of 79 BPM, LBBB. Re-Evaluation - Re-Evaluation First Eval Re-Evaluation Time: 11:30 Change: Unchanged Comment: Nurse reports that the patient had told him that his cardiac problems are possibly related to his hx of cocaine usage. He also reports having a 16 ounce Red Bull this morning. Second Eval Re-Evaluation Time: 12:39 Change: Unchanged Comment: Because of his comorbidities I discussed my findings and test results with the patient and the I advised the patient to be admitted to the hospital for further workup and management. The patient declined and he was signing AGAINST MEDICAL ADVICE. He will see his box liner as an outpatient. I extensively discussed with the patient the benefits and risk of leaving AMA. I also discussed the alternatives to leaving AMA, however, the patient still insist to leave the hospital AMA. The patient is clinically sober, free from distracting injury, appears to have intact insight and judgment and reason and in my opinion has the capacity to make decisions. Patient has full capacity and is cognitively intact. The patient presents with chest pain, dizziness, palpitations, I have explained that I am concerned with arrhythmia, in and out of normal sinus rhythm into a left bundle branch block, and may represent and arrhythmia leading to . The patient verbalizes the understanding of my concerns. I have also explained the results of the labs and even though they are normal . The primary nurse and the charge nurse also strongly recommended that the patient should not leave AMA. Patient understands the risk of leaving AMA, which includes but is not restricted to . Patient signed the AMA form. Patient was also advised to return to ED if he changes his mind or if the symptoms worsen or other symptoms appear. Patient understands and agrees. Again, I discussed all the findings and test results with the patient. Patient was instructed to return to the emergency room immediately if any of the symptoms return or worsens. Plan of care was discussed with the patient and understands and agrees. All questions were answered at patient satisfaction. There were no further complaints or concerns. Patient signed AMA and he was discharged AMA. Complex Multi-Symp Course/Dx Assessment/Plan: This patient is a 33-year-old male who presents to the urgent with chief complaint of having chest pain, dizziness and feeling like is going to pass out. Patient reports that he drank a 16 ounce red bull and he was smelling the fumes from polyurethane while he was at his job. 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 Also he has history of left bundle-branch block, ejection fraction of 20% however in the last visit with his box liner he reports that the ejection fraction has been up to 40%. He also has history of dilated cardiomyopathy. EKG shows a normal sinus rhythm with T-wave inversions from V2-V6. However, it appears that the patient is going in and out of NSR and LBBB. I discussed the findings with Dr. Gross from cardiology and he agrees. Blood work without any significant abnormality except for WBCs of 11.7, glucose 110, lactic acid is 2.6, urinalysis is negative for UTI, urine toxicology positive for cannabinoids. BNP is only 10. Chest x-ray impression: No active cardiopulmonary disease. Because of his comorbidities I discussed my findings and test results with the patient and the I advised the patient to be admitted to the hospital for further workup and management. The patient declined and he was signing AGAINST MEDICAL ADVICE. He will see his box liner as an outpatient. I extensively discussed with the patient the benefits and risk of leaving AMA. I also discussed the alternatives to leaving AMA, however, the patient still insist to leave the hospital AMA. The patient is clinically sober, free from distracting injury, appears to have intact insight and judgment and reason and in my opinion has the capacity to make decisions. Patient has full capacity and is cognitively intact. The patient presents with chest pain, dizziness, palpitations, I have explained that I am concerned with arrhythmia, in and out of normal sinus rhythm into a left bundle branch block, and may represent and arrhythmia leading to . The patient verbalizes the understanding of my concerns. I have also explained the results of the labs and even though they are normal . The primary nurse and the charge nurse also strongly recommended that the patient should not leave AMA. Patient understands the risk of leaving AMA, which includes but is not restricted to . Patient signed the AMA form. Patient was also advised to return to ED if he changes his mind or if the symptoms worsen or other symptoms appear. Patient understands and agrees. Again , I discussed all the findings and test results with the patient. Patient was instructed to return to the emergency room immediately if any of the symptoms return or worsens. Plan of care was discussed with the patient and understands and agrees. All questions were answered at patient satisfaction. There were no further complaints or concerns. Patient signed AMA and he was discharged AMA. - Diagnoses Differential Diagnoses/HQI/PQRI: Cardiac Ischemia, Metabolic Abnormality Provider Diagnoses: Chest pain, LBBB (left bundle branch block), Dizziness, Near syncope - Physician Notifications Discussed Care Of Patient With: Justin Gross Time Discussed With Above Provider: 11:56 Instructed by Provider To: Other - Patient's case was discussed with Dr. Gross, Dr. Gross states that the patient appears to be going in and out of NSR to LBBB. Patient to be treated with ASA. Discharge - Sign-Out/Discharge Documenting (check all that apply): Patient Departure - AMA Patient Received Moderate/Deep Sedation with Procedure: No - Discharge Plan Condition: Good Disposition: AGAINST MEDICAL ADVICE Referrals: Sally Kessler MD [Primary Care Provider] - - Billing Disposition and Condition Condition: GOOD Disposition: Against Medical Advice - Attestation Statements Document Initiated by Scribe: Yes Documenting Scribe: AQUILINO ZAMARRIPA Provider For Whom Scribe is Documenting (Include Credential): REY SALAMANCA MD Scribe Attestation: AQUILINO Clark, scribed for REY SALAMANCA MD on 01/16/19 at 2109. Scribe Documentation Reviewed: Yes Provider Attestation: The documentation as recorded by the AQUILINO cruz accurately reflects the service I personally performed and the decisions made by me, REY SALAMANCA MD Status of Scribe Document: Viewed
[2019-01-16 11:55] LABS: Hematocrit 43 % (36-46); Hemoglobin 14.7 g/dL (14.0-18.0); Mean Corpuscular HGB Conc 34 g/dL (31-36); Mean Corpuscular Hemoglobin 31 pg (27-31); Mean Corpuscular Volume 90 fL (80-94); Mean Platelet Volume 9.2 fL (7.4-10.4); Platelet Count 261 10^3/uL (150-450); Red Blood Count 4.82 10^6 /uL (4.18-5.48); Red Cell Distribution Width 14 % (10.5-15); White Blood Count 11.7 10^3/uL (3.5-10.8)
[2019-01-16 11:58] LABS: ABS Basophils 0.1 10^3/ul (0-0.2); ABS Eosinophils 0.1 10^3/ul (0-0.6); ABS Lymphocytes 1.8 10^3/ul (1.0-4.8); ABS Monocytes 0.7 10^3/ul (0-0.8); ABS Neutrophils 8.9 10^3/ul (1.5-7.7); ABS Nucleated RBC 0 10^3/ul; Eosinophil % 1.1 %; Lymphocyte % 15.8 %; Nucleated Red Blood Cells % 0.1
[2019-01-16] MEDS ORDERED: Aspirin 81 mg CHEW TAB* 81 MG TAB.CHEW PO ONE (11:58)
[2019-01-16 12:03] LABS: Activated Partial Thrombo Time 29.4 seconds (26.0-36.3); INR 0.97 (0.82-1.09)
[2019-01-16 12:08] LABS: Urine Appearance Clear; Urine Bilirubin Negative (Negative); Urine Blood Negative (Negative); Urine Color Straw; Urine Glucose Negative (Negative); Urine Ketones Negative (Negative); Urine Nitrite Negative (Negative); Urine Protein Negative (Negative); Urine Specific Gravity 1.008 (1.010-1.030); Urine Urobilinogen Negative (Negative)
[2019-01-16 12:17] LABS: Albumin 4.7 g/dL (3.2-5.2); Albumin/Globulin Ratio 1.5 (1-3); BUN/Creatinine Ratio 13.7 (8-20); Calcium 9.6 mg/dL (8.6-10.3); EGFR African American 101.2 (>60); EGFR Non-African American 83.6 (>60); Globulin 3.1 g/dL (2-4); Magnesium 1.9 mg/dL (1.9-2.7); Potassium 3.7 mmol/L (3.5-5.0); Total Bilirubin 0.4 mg/dL (0.2-1.0); Total Protein 7.8 g/dL (6.4-8.9)
[2019-01-16 12:20] LABS: CKMB ng/mL 1.3 ng/mL (0.6-6.3)
[2019-01-16 12:23] LABS: Urine Benzodiazepine Screen None Detected (None Detect); Urine Opiates Screen None Detected (None Detect)
[2019-01-16 13:08] VITALS: BP 125/75
[2019-01-16 14:11] LABS: TSH (Thyroid Stimulating Horm) 1.94 mcIU/mL (0.34-5.60)
== END 2019-01-16 13:09 | disposition left against medical advice (07) ==
LOC: ED 11:09
DX: R07.9 Chest pain, unspecified (principal); I44.7 Left bundle-branch block, unspecified; R94.31 Abnormal electrocardiogram [ECG] [EKG]; R42 Dizziness and giddiness; R55 Syncope and collapse; I11.0 Hypertensive heart disease with heart failure; I50.9 Heart failure, unspecified; I42.9 Cardiomyopathy, unspecified; Z79.899 Other long term (current) drug therapy; Z87.891 Personal history of nicotine dependence; Z53.20 Procedure and treatment not carried out because of patient's decision for unspecified reasons
CPT/HCPCS: 36415; 71045; 80053; 80307; 81003; 82550; 82553; 83605; 83735; 83880; 84443; 84484; 85025; 85610; 85730; 93005; 99283; A9270-GY

== ENCOUNTER 2019-03-06 08:27 | Emergency (ER) | payer MEDICAID ==
--- NOTE | 2019-03-06 09:03 | UC ---
Skin Complaint HPI - HPI Summary HPI Summary: 33-year-old male who had a tick embedded in his right mid back approximate 1 week ago. He states it was embedded for approximately 24 hours. He states now he feels achy and where he got bit has more redness and mild swelling he also has a red rash on his mid back. He denies any fever or chills. - History of Current Complaint Chief Complaint: UCSkin Time Seen by Provider: 03/06/19 08:59 Stated Complaint: TICKBITE RT ARM/LYME Hx Obtained From: Patient Onset/Duration: Gradual Onset Skin Exposure Onset/Duration: Days Ago - Tick bite one week ago the state embedded for 24 hours he thinks. Timing: Constant Onset Severity: Mild Current Severity: Moderate Pain Intensity: 7 Location: Other - Right side of mid back. Character: Swelling - . Minimal swelling at the tick bite., Redness Aggravating Factor(s): Nothing Alleviating Factor(s): Nothing Related History: Insect Bite/Sting - Allergy/Home Medications Allergies/Adverse Reactions: Allergies Allergy/AdvReac Type Severity Reaction Status Date / Time bee venom protein (honey bee) Allergy Airway Verified 03/06/19 08:39 Obstruction Home Medications: Home Medications EPINEPHrine [Epipen] 1 unit IM ONCE PRN 03/06/19 [History Confirmed 03/06/19] Multivitamin [Multivitamins] 1 tab PO DAILY 03/06/19 [History Confirmed 03/06/19 ] PMH/Surg Hx/FS Hx/Imm Hx Previously Healthy: Yes Cardiovascular History: Other - History of cardiomyopathy. - Surgical History Surgical History: None - Family History Known Family History: Positive: Cardiac Disease - Father of [place], father - cardiomyopathy , Hypertension, Diabetes - Social History Alcohol Use: Rare Substance Use Type: Marijuana Substance Use Comment - Amount & Last Used: occasionally Smoking Status (MU): Never Smoked Tobacco Review of Systems All Other Systems Reviewed And Are Negative: Yes Skin: Positive: Rash - Rash on right side where the tick bite was located and he 's got a red area on the right back. Musculoskeletal: Positive: Arthralgia, Other: - She states he feels achy all over. Neurological: Negative: Headache, Weakness, Paresthesia, Numbness Is Patient Immunocompromised?: No Physical Exam Triage Information Reviewed: Yes Appearance: Well-Appearing, No Pain Distress, Well-Nourished Vital Signs: Initial Vital Signs Temp 98 F 06/17/19 08:35 Pulse 61 03/06/19 08:35 Resp 18 03/06/19 08:35 BP 125/59 03/06/19 08:35 Pulse Ox 98 03/06/19 08:35 Vital Signs Reviewed: Yes Respiratory: Positive: Lungs clear, Normal breath sounds, No respiratory distress, No accessory muscle use Cardiovascular: Positive: RRR, No Murmur, Pulses Normal, Brisk Capillary Refill Musculoskeletal Exam: Normal Neurological Exam: Normal Psychological Exam: Normal Skin: Positive: Rashes - Patient has a red mildly elevated area to the right back with a tick bite was located which is approximately 5.0 cm in diameter. He has another red area to the right back which is not a bull's-eye rash nor is a circular however that's approximately 7 cm x 3 cm. Both are nontender on palpation. Course/Dx - Course Course Of Treatment: Lyme titers were drawn, I am going to treat the patient for Lyme disease especially because of his history of cardiomyopathy. He is given doxycycline 100 mg by mouth twice a day 14 days with a follow-up with his primary care provider or the [facility] prior to the completion of the 14 day antibiotic course. We will call him with the results of the Lyme titers. - Diagnoses Provider Diagnosis: Lyme disease Discharge - Sign-Out/Discharge Documenting (check all that apply): Patient Departure All imaging exams completed and their final reports reviewed: No Studies - Discharge Plan Condition: Fair Disposition: HOME Prescriptions: DOXYcycline CAP(*) [DOXYcycline 100MG CAP(*)] 100 mg PO BID 14 Days #28 cap Patient Education Materials: Lyme Disease (ED) Referrals: [facility] [Outside] Sally Kessler MD [Primary Care Provider] - Additional Instructions: No dairy products, antacids or multivitamins 2 hours before you take the doxycycline and 2 hours after you take doxycycline however you do want to take it with food because it may upset your stomach. Definite follow-up with either your primary care provider or the [facility] for any further concerns. We will call you with the results of the blood test if it is negative you may stop the doxycycline if it is positive you will continue it for the 2 weeks and follow up at the [facility] to see if they want to continue longer. - Billing Disposition and Condition Condition: FAIR Disposition: Home
[2019-03-06 09:10] VITALS: BP 125/59
== END 2019-03-06 09:16 | disposition home or self-care (01) ==
LOC: UCEAST 08:27
DX: A69.20 Lyme disease, unspecified (principal); T63.481A Toxic effect of venom of other arthropod, accidental (unintentional), initial encounter; Y92.9 Unspecified place or not applicable
CPT/HCPCS: 36415; 86618; 99212; G0463